=== PATIENT | male | born 1965 | race Caucasian/White ===

== ENCOUNTER 2022-06-08 10:06 | Inpatient (IN) ==
--- NOTE | 2022-06-08 10:17 | Emergency Department Note ---
HPI General Chief complaint: Wound/Laceration Stated complaint: blister on foot Time Seen by Provider: 06/08/22 10:17 Source: patient Mode of arrival: ambulatory Limitations: no limitations History of Present Illness HPI Narrative: Narrative: Patient is a 56-year-old male with a history significant for type 2 diabetes and diabetic foot wounds who presents to the emergency department at the request of Dr. Malik due to worsened foot wound. Patient states that he was seen on the at which time there was concern for a foot wound with surrounding cellulitis. Patient was given a prescription for antibiotics which she states that he has been taking since the time that they were prescribed. He saw Dr. Mendes this morning, and states that he has had worsening and spreading of the redness on his foot since his visit on the . He states that Dr. Malik saw him and became concerned, debrided his foot, and sent him to the emergency department. He denies any other concerns at this time. Related Data Home Medications Medication Instructions Recorded Confirmed aspirin 81 mg tablet,delayed 81 mg PO QDAY 02/20/15 06/08/22 release glucagon HCl 1 mg solution for 1 mg subcut Q20M PRN blood sugar 01/02/20 06/08/22 injection (Glucagon (HCl) Emergency Kit) travoprost 0.004 % eye drops 1 drp ophthalmic (eye) QPM 01/02/20 06/08/22 (Travatan Z) cholecalciferol (vitamin D3) 125 5,000 unit PO QDAY 05/26/21 06/08/22 mcg (5,000 unit) capsule Previous Rx's Medication Instructions Recorded lactobacillus combination no.9 4 4,000 mmu cells PO QDAY #30 caps 05/23/18 billion cell capsule (Adult 50 Plus Probiotic) carvedilol 3.125 mg tablet 3.125 mg PO BID #180 tabs 06/16/21 amlodipine 10 mg tablet 10 mg PO HS #90 tabs 10/27/21 calcitriol 0.25 mcg capsule 0.25 mcg PO 3XW #108 caps 10/27/21 ferrous fumarate 325 mg (106 mg 325 mg PO QDAY #30 tabs 10/27/21 iron) tablet insulin glargine 100 unit/mL See Rx Instructions subcut BID #90 10/27/21 subcutaneous solution mL insulin lispro 100 unit/mL See Rx Instructions .Route 10/27/21 subcutaneous pen .COMPLEX #15 mL omeprazole 20 mg capsule,delayed 20 mg PO HS #90 caps 11/11/21 release blood sugar diagnostic #100 ea 02/08/22 Telfa #1 Box 02/15/22 tamsulosin 0.4 mg capsule 0.4 mg PO HS #90 caps 02/23/22 folic acid 1 mg tablet 1 mg PO QDAY #90 tabs 02/28/22 furosemide 40 mg tablet 80 mg PO QDAY #180 tabs 02/28/22 allopurinol 100 mg tablet 100 mg PO QDAY #90 tabs 03/22/22 losartan 50 mg tablet 50 mg PO HS #90 tabs 03/22/22 atorvastatin 40 mg tablet 40 mg PO QHS #90 tabs 03/28/22 gabapentin 400 mg capsule See Rx Instructions .Route 04/01/22 .COMPLEX #270 caps baclofen 10 mg tablet See Rx Instructions .Route 04/27/22 .COMPLEX #60 tabs pen needle, diabetic 31 gauge x #100 ea 04/27/2211/29" (BD Ultra-Fine Short Pen Needle) blood-glucose sensor (Dexcom G6 #3 ea 05/02/22 Sensor device) blood-glucose transmitter (Dexcom #1 ea 05/02/22 G6 Transmitter device) clonazepam 1 mg tablet 1 mg PO BID PRN anxiety #60 tabs 05/27/22 hydrocodone 10 mg-acetaminophen 1 tab PO .five times a day PRN 05/27/22 325 mg tablet pain #150 tabs fluoxetine 20 mg capsule 80 mg PO QDAY 90 days #120 caps 05/30/22 Lactobacillus rhamnosus GG 20 1 cell PO QHS 60 days #60 caps 06/03/22 billion cell capsule (Probiotic Digestive Care) Allergies Allergy/AdvReac Type Severity Reaction Status Date / Time bee venom protein (honey bee) Allergy Severe nausea,swel Verified 06/08/22 10:11 ling doxazosin AdvReac Unknown abdominal Verified 06/08/22 10:11 pain sitagliptin [From Januvia] AdvReac unknown Verified 06/08/22 10:11 Review of Systems ROS ROS Narrative: Narrative: Constitutional: Denies fever or weakness Eyes: Denies eye pain or vision change ENT ED: Denies throat pain, hearing loss or rhinorrhea Cardiovascular: Denies chest pain, dyspnea on exertion, orthopnea or edema Respiratory: Denies shortness of breath or cough Gastrointestinal: Denies abdominal pain, nausea, vomiting, diarrhea, constipation, hematochezia or melena Genitourinary: Denies dysuria, frequency, hematuria or incontinence Musculoskeletal: Denies back pain or myalgia Integumentary: Reports lesions and change in color; Denies rash Neurological: Denies headache, weakness, numbness, confusion, abnormal gait or dizziness Endocrine: Denies fatigue or polyuria Hematological/Lymphatic: Denies easy bleeding or easy bruising [facility] Narrative Patient History Narrative: Narrative: Medical/Surgical/Family History All Active Problems (Updated 06/10/22 @ 06:35 by Amarjit Cheney MD) Cellulitis (Acute) Stage 2 acute kidney injury (Acute) Diabetic foot ulcer associated with type 2 diabetes mellitus, with fat layer exposed (Acute) Foot ulcer (Acute) Cellulitis and abscess of foot (Acute) Cellulitis of left foot (Acute) Advanced directives, counseling/discussion (Acute) Decreased hearing (Acute) Fatigue (Acute) Medicare annual wellness visit, initial (Acute) Diabetic neuropathy (Acute) Comprehensive diabetic foot examination, type 2 DM, encounter for (Acute) Wound of foot (Acute) Right foot pain (Acute) Anemia in stage 4 chronic kidney disease (Chronic) Diabetic foot ulcer (Acute) Chronic iron deficiency anemia (Acute) Secondary hyperparathyroidism of renal origin (Chronic) Localized edema due to fluid overload (Chronic) Ureteropelvic junction (UPJ) obstruction (Acute) Renal stone (Acute) Renal cyst (Acute) Chronic low back pain (Acute) Colitis without complication (Acute) Gastritis (Acute) Toe anomaly (Acute) Hypertension in stage 4 chronic kidney disease due to type 2 diabetes mellitus (Chronic) Screening PSA (prostate specific antigen) (Acute) Insomnia (Acute) Primary open-angle glaucoma, bilateral, mild stage (Acute) group home (current) use of aspirin (Acute) group home (current) use of opiate analgesic (Acute) PTSD (post-traumatic stress disorder) (Acute) Panic attack (Acute) Claustrophobia (Acute) DDD (degenerative disc disease), lumbar (Acute) Radiculopathy, lumbar region (Acute) Primary generalized (osteo)arthritis (Acute) Pure hypercholesterolemia, unspecified (Acute) Type 2 diabetes mellitus with moderate nonproliferative diabetic retinopathy without macular edema, unspecified eye (Acute) Type 2 diabetes mellitus with diabetic nephropathy (Acute) Morbid (severe) obesity due to excess calories (Acute) Chronic kidney disease (CKD) stage G4/A3, severely decreased glomerular filtration rate (GFR) between 15-29 mL/min/1.73 square meter and albuminuria creatinine ratio greater than 300 mg/g (Chronic) Chronic pain (Acute) Retinopathy due to secondary diabetes (Acute) Normal colonoscopy (Acute) Disorder of hip region (Chronic ~1964) Club foot of both lower extremities (Chronic ~1964) Pancreatitis (Chronic) Migraines (Chronic) Depression (Chronic) Anxiety (Chronic) Thrombocytopenia (Chronic) Gastroenteritis (Acute) Gastritis (Acute) Abnormal laboratory test result (Acute) Hypoglycemia (Acute) Edema extremities (Chronic) Type 2 DM with CKD stage 4 and hypertension (Chronic) Hypertensive renal disease (Chronic) Obesity (Chronic) 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 (Chronic) 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 (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) Vitamin D deficiency (Chronic) Hyperlipidemia (Chronic) HTN (hypertension) (Chronic) Diabetes mellitus, type II (Chronic ~1993) Diabetes mellitus with renal manifestation (Chronic) Medical History Anxiety 10/20/2020 taking clonazepam 1 mg each day, fluoxetine 60 mg daily, gabapentin, follow-up 3 months 01/20/2021 deteriorated, consult behavioral health 05/21/2021 deteriorated, increase fluoxetine to 80, increase clonazepam to twice daily, follow-up 1 month 10/07/2021 improved, continue fluoxetine 80 and clonazepam twice a day 03/23/2022 refer to [facility] Chronic pain Disabled due to pain in feet back and hips in 199301/03/2020 pain contract signed, Narcan given, risks versus benefit discussed 09/08/[address]GE pulled, urine drug screen, pain contract signed, discussed risks 10/07/2021 stable on hydrocodone Claustrophobia Club foot of both lower extremities (~1965) Comprehensive diabetic foot examination, type 2 DM, encounter for DDD (degenerative disc disease), lumbar Depression 02/21/2020 taking clonazepam 1 mg each day, fluoxetine 60 mg daily, gabapentin 10/20/2020 stable on clonazepam, fluoxetine and gabapentin 01/20/2021 deteriorated, consult behavioral health 05/21/2021 deteriorated, increase fluoxetine to 80, increase clonazepam to twice daily, follow-up 1 month 10/07/2021 improved, continue fluoxetine 80 and clonazepam twice a day 03/23/2022 refer to [facility] Diabetes mellitus with renal manifestation Followed by nephrology, glipizide on hold Diabetes mellitus, type II (~1993) 02/21/2020 A1c 6.4 down from 6.6, less low blood sugar symptoms and results, encouraged him to continue current regimen Lantus 40 twice daily, Humalog 12 units with lunch and dinner. Check blood sugar fasting, 2 hours after breakfast, before lunch, before dinner, at bedtime. 10/07/21 foot exam =05/2021. A1C 7.1 continue current medication regimen and checking blood sugars, labs today 02/15/2022 recent A1c 7.9, discussed strategies to improve, continue medication, check labs in 3 months 04/27/2022 labs today and follow-up in a month to discuss Diabetic neuropathy Disorder of hip region (~1964) Edema extremities Probably a combination of chronic kidney disease, proteinuria, amlodipine HTN (hypertension) 03/23/2022 followed by nephrology, elevated, encouraged him to monitor blood pressure at home Hyperlipidemia 02/19/2021 stable, but triglycerides deteriorated, continue atorvastatin 40, discussed ways to improve HDL, follow-up 3 months 02/15/2022 triglycerides elevated, continue atorvastatin 40, recheck in 3 months and then follow-up with me Hypertensive renal disease Insomnia group home (current) use of aspirin group home (current) use of opiate analgesic 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 Medicare annual wellness visit, initial Migraines Obesity Pancreatitis Secondary to Januvia Panic attack Primary generalized (osteo)arthritis Primary open-angle glaucoma, bilateral, mild stage Proteinuria PTSD (post-traumatic stress disorder) 02/21/2020 taking clonazepam 1 mg each day, fluoxetine 60 mg daily, gabapentin 10/20/2020 stable on clonazepam, fluoxetine and gabapentin 01/20/2021 deteriorated, consult behavioral health 05/21/2021 patient and admit they have been playing phone tag with [employer] [facility], increase fluoxetine to 80, increase clonazepam to twice daily, follow-up 1 month Pure hypercholesterolemia, unspecified Radiculopathy, lumbar region Retinopathy due to secondary diabetes Followed [facility] Screening PSA (prostate specific antigen) Thrombocytopenia [facility] evaluated and cleared the patient. Type 2 diabetes mellitus with diabetic nephropathy Followed by nephrology Type 2 diabetes mellitus with moderate nonproliferative diabetic retinopathy without macular edema, unspecified eye Followed by ophthalmology Vitamin D deficiency 07/21/2020 lower than before, continue taking vitamin D3 5000 daily Surgical History History of colonoscopy (03/12/20) History of esophagogastroduodenoscopy (EGD) (03/12/20) History of foot surgery Surgeries to correct double club feet. 1965, 1965 Normal colonoscopy Normal, repeat in 10 years, [facility] gastroenterology S/P foot surgery, left club foot surgery as an S/P foot surgery, right club foot surgery as an Family History Mother Cerebrovascular accident Osteoporosis Migraine Asthma Arthritis High blood pressure Congestive heart failure Depression Anxiety Diabetes COPD (chronic obstructive pulmonary disease) Father , 85 Alzheimer's disease Dementia Grandfather Diabetes Maternal Son Depression Social History Smoking Status: Former smoker Alcohol Intake Frequency: does not drink Substance Use: marijuana Exam Narrative Narrative: Narrative: General Limitations: no limitations General appearance: Present alert and in no apparent distress; Absent anxious, appears intoxicated or sleepy Head Head: Present atraumatic and normocephalic Eye Eye: Present PERRL and EOMI; Absent scleral icterus or nystagmus ENT ENT: Present mucous membranes moist; Absent nasal congestion Neck Neck: Present full ROM; Absent tenderness Chest Chest: Present normal inspection and symmetric chest wall rise Respiratory Respiratory: Present normal lung sounds bilaterally; Absent respiratory distress or accessory muscle use Cardiovascular Cardiovascular: Present regular rate, normal rhythm and normal heart sounds Adbominal Abdominal: Present soft and normal bowel sounds; Absent distention Extremities Extremities: Present normal inspection and full ROM; Absent tenderness Back Back: Present normal inspection and full ROM Neurological Neurological: Present alert and oriented X3 Psychiatric Psychiatric: Present normal affect and normal mood Skin Skin: Present warm (WNL), dry, normal color, erythema and other (Ulcer) Course Vital Signs Vital signs: Vital Signs Temperature 96.6 F L 06/08/22 10:09 Pulse Rate 87 06/08/22 10:09 Respiratory Rate 18 06/08/22 10:09 Blood Pressure 151/78 06/08/22 10:09 Pulse Oximetry (%) 96 06/08/22 10:09 Oxygen Delivery Method 06/08/22 10:09 Temperature 97.0 F 06/10/22 03:38 Pulse Rate 63 06/10/22 03:38 Respiratory Rate 20 06/10/22 03:38 Blood Pressure 159/76 06/10/22 03:38 Pulse Oximetry (%) 99 06/10/22 03:38 Oxygen Delivery Method 06/10/22 03:38 MDM MDM Narrative Medical decision making narrative: Narrative: Patient is a 56-year-old male who presents to the emergency department due to concern for failure of outpatient therapy for cellulitis. Patient does have spread of cellulitic looking erythema of the skin. Due to concern for worsening cellulitis and failure of outpatient therapy-patient antibiotics have spoken to hospitalist who has agreed to see and evaluate patient for admission. Lab Data Result diagrams: 06/09/22 04:59 06/10/22 05:34 Labs: Lab Results 06/08/22 06/08/22 06/08/22 Range/Units 10:36 10:39 10:39 WBC 9.5 (4.5-11.0) K/mcL RBC 4.07 L (4.63-6.08) M/mcL Hgb 11.5 L (13.7-17.5) g/dL Hct 34.6 L (40.1-51.0) % POC Hct 35.0 L (41-55) MCV 85.0 (80.0-100.0) fL MCH 28.3 (26.0-34.0) pg MCHC 33.2 (31.0-36.0) g/dL RDW 13.3 (11.5-14.5) % Plt Count 135 L (140-440) K/mcL MPV 8.2 L (8.8-12.5) fL Immature Gran % (Auto) 0.9 H (0.0-0.5) % Neut % (Auto) 75.5 (38.0-78.0) % Lymph % (Auto) 14.4 L (15.5-49.0) % [place] % (Auto) 5.6 (1.0-12.0) % Eos % (Auto) 3.0 (0.0-7.0) % Baso % (Auto) 0.6 (0.0-2.0) % Lymph # (Auto) 1.37 L (1.50-4.80) K/mcL [place] # (Auto) 0.53 (0.10-0.90) K/mcL Eos # (Auto) 0.28 (0.00-0.70) K/mcL Baso # (Auto) 0.06 (0.00-0.30) K/mcL Immature Gran # 0.09 H (0.00-0.05) K/mcl Absolute Neutrophils 7.16 (1.80-8.00) K/mcL POC Sodium 136 (133-145) POC Potassium 4.2 (3.3-5.1) POC Chloride 99 (96-108) POC Total CO2 25.0 (22-30) POC BUN 67 H (6-20) POC Creatinine 3.4 H (0.6-1.2) POC Glucose 297 H (70-105) POC WB Ioniz Calcium 1.16 (1.16-1.32) C-Reactive Protein 5.40 H (0.03-0.80) mg/dL Procalcitonin (<0.10) ng/mL 06/08/22 Range/Units 10:39 WBC (4.5-11.0) K/mcL RBC (4.63-6.08) M/mcL Hgb (13.7-17.5) g/dL Hct (40.1-51.0) % POC Hct (41-55) MCV (80.0-100.0) fL MCH (26.0-34.0) pg MCHC (31.0-36.0) g/dL RDW (11.5-14.5) % Plt Count (140-440) K/mcL MPV (8.8-12.5) fL Immature Gran % (Auto) (0.0-0.5) % Neut % (Auto) (38.0-78.0) % Lymph % (Auto) (15.5-49.0) % [place] % (Auto) (1.0-12.0) % Eos % (Auto) (0.0-7.0) % Baso % (Auto) (0.0-2.0) % Lymph # (Auto) (1.50-4.80) K/mcL [place] # (Auto) (0.10-0.90) K/mcL Eos # (Auto) (0.00-0.70) K/mcL Baso # (Auto) (0.00-0.30) K/mcL Immature Gran # (0.00-0.05) K/mcl Absolute Neutrophils (1.80-8.00) K/mcL POC Sodium (133-145) POC Potassium (3.3-5.1) POC Chloride (96-108) POC Total CO2 (22-30) POC BUN (6-20) POC Creatinine (0.6-1.2) POC Glucose (70-105) POC WB Ioniz Calcium (1.16-1.32) C-Reactive Protein (0.03-0.80) mg/dL Procalcitonin 0.34 H (<0.10) ng/mL Discharge Plan Patient/Caregiver Discharge Instructions Pt seen by [facility]/PA only: No Clinical Impression: Cellulitis Patient Disposition: Xfer As Inpt ([facility]) Condition: Good Discharge Date/Time: 06/08/22 14:14
[2022-06-08] MEDS ORDERED: CEFEPIME 2 GM VIAL IV ONE (10:18)
[2022-06-08] MEDS ORDERED: VANCOMYCIN 2,000 MG in 0.9 % SODIUM CHLORIDE 500 ML IV ONE (10:18)
[2022-06-08 10:42] LABS: POC Calcium, Ionized 1.16 (1.16-1.32); POC Creatinine 3.4 (0.6-1.2); POC Potassium 4.2 (3.3-5.1)
[2022-06-08] MEDS ORDERED: 0.9 % SODIUM CHLORIDE 500 ML IV ONE (10:45)
[2022-06-08] MEDS ORDERED: 0.9 % SODIUM CHLORIDE 500 ML ONE (11:07)
[2022-06-08 11:33] LABS: Basophils # (Auto) 0.06 K/mcL (0.00-0.30); Basophils % (Auto) 0.6 % (0.0-2.0); Eosinophils # (Auto) 0.28 K/mcL (0.00-0.70); Hematocrit 34.6 % (40.1-51.0); Hemoglobin 11.5 g/dL (13.7-17.5); Lymphocytes # (Auto) 1.37 K/mcL (1.50-4.80); Lymphocytes % (Auto) 14.4 % (15.5-49.0); Mean Corpuscular HGB Conc 33.2 g/dL (31.0-36.0); Mean Platelet Volume 8.2 fL (8.8-12.5); Monocytes # (Auto) 0.53 K/mcL (0.10-0.90); Monocytes % (Auto) 5.6 % (1.0-12.0); Neutrophils % (Auto) 75.5 % (38.0-78.0); Platelet Count 135 K/mcL (140-440); RBC 4.07 M/mcL (4.63-6.08); Red Cell Distribution Width 13.3 % (11.5-14.5); WBC 9.5 K/mcL (4.5-11.0)
--- NOTE | 2022-06-08 13:47 | Internal Med History&Physical ---
HPI History of Present Illness Patient information: Note initiated : 06/08/22 at 1:43 pm Service Date, if different from initiated Date: [] Patient: Tanvir Fontana Jr 56 y/o M admitted on for blister on foot. Chief Complaint: [left foot ulcer] Chief complaint: left foot ulcer History of present illness: Mr. Addi Singh is a 56 year old M history of type 2 diabetes mellitus, diabetic foot ulcer of the left heel, chronic kidney disease stage IV, essential hypertensions, dyslipidemia, obesity, presenting with 5-day history of nonhealing left foot ulcer. He had a history of acute left healed ulcer. Last Monday he presented to our ED for a new ulcer between the base of his first and second left toe. He was being discharged home with oral antibiotics Augmentin and doxycycline for it. He finished 5-day course of dosed oral antibiotics and he presented to Dr. Malik [facility] today for further evaluations. The ulceration/infection was deemed to be not healing despite 5-day course of oral antibiotics, so he was being told to come to the ED for reevaluations. Patient's denies any pain of his left foot. He is complaining of some general body weakness. He denies any other systemic symptoms such as change in his appetite, fever, chills, or diaphoresis. His vital sign is unremarkable. Labs significant for lack of leukocytosis with WBC 9.5. CRP 5.4. Procalcitonin 0.34. ESR pending. Lactic acid pending. Blood glucose level 297. Serum creatinine level 3.4 with baseline 2.6. Admission request was called for diabetic foot infections. Constitutional Constitutional: Present weakness; Absent chills, excessive sweating, fatigue or fever(s) EENT Eyes: Absent blurry vision, change in vision, loss of vision or other visual disturbances Ears: Absent decreased hearing or tinnitus Nose, mouth and throat: Absent abnormal hearing, dry mouth, headache(s), nasal congestion or sore throat Cardiovascular Cardiovascular: Absent chest pain, chest pain at rest, edema, irregular heart rhythm or palpatations Respiratory Respiratory: Absent cough, dyspnea or wheezing Gastrointestinal Gastrointestinal: Absent abdominal pain, constipation, diarrhea, nausea or vomiting Musculoskeletal Musculoskeletal: Absent back pain, deformity, limited range of motion, muscle cramps, muscle weakness or numbness Integumentary Integumentary: Absent lesions, rash or wounds Neurological Neurological: Absent focal weakness, headache(s) or numbness Psychiatric Psychiatric: Absent anxiety, depression or hallucinations PFSH PFSH All Active Problems (Updated 06/08/22 @ 13:55 by Zion Henry MD) Stage 2 acute kidney injury (Acute) Diabetic foot ulcer associated with type 2 diabetes mellitus, with fat layer exposed (Acute) Foot ulcer (Acute) Cellulitis and abscess of foot (Acute) Cellulitis of left foot (Acute) Advanced directives, counseling/discussion (Acute) Decreased hearing (Acute) Fatigue (Acute) Medicare annual wellness visit, initial (Acute) Diabetic neuropathy (Acute) Comprehensive diabetic foot examination, type 2 DM, encounter for (Acute) Wound of foot (Acute) Right foot pain (Acute) Anemia in stage 4 chronic kidney disease (Chronic) Diabetic foot ulcer (Acute) Chronic iron deficiency anemia (Acute) Secondary hyperparathyroidism of renal origin (Chronic) Localized edema due to fluid overload (Chronic) Ureteropelvic junction (UPJ) obstruction (Acute) Renal stone (Acute) Renal cyst (Acute) Chronic low back pain (Acute) Colitis without complication (Acute) Gastritis (Acute) Toe anomaly (Acute) Hypertension in stage 4 chronic kidney disease due to type 2 diabetes mellitus (Chronic) Screening PSA (prostate specific antigen) (Acute) Insomnia (Acute) Primary open-angle glaucoma, bilateral, mild stage (Acute) FPC (current) use of 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 (Acute) 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 (Acute) PTSD (post-traumatic stress disorder) (Acute) Panic attack (Acute) Claustrophobia (Acute) DDD (degenerative disc disease), lumbar (Acute) Radiculopathy, lumbar region (Acute) Primary generalized (osteo)arthritis (Acute) Pure hypercholesterolemia, unspecified (Acute) Type 2 diabetes mellitus with moderate nonproliferative diabetic retinopathy without macular edema, unspecified eye (Acute) Type 2 diabetes mellitus with diabetic nephropathy (Acute) Morbid (severe) obesity due to excess calories (Acute) Chronic kidney disease (CKD) stage G4/A3, severely decreased glomerular filtration rate (GFR) between 15-29 mL/min/1.73 square meter and albuminuria creatinine ratio greater than 300 mg/g (Chronic) Chronic pain (Acute) Retinopathy due to secondary diabetes (Acute) Normal colonoscopy (Acute) Disorder of hip region (Chronic ~1964) Club foot of both lower extremities (Chronic ~1964) Pancreatitis (Chronic) Migraines (Chronic) Depression (Chronic) Anxiety (Chronic) Thrombocytopenia (Chronic) Gastroenteritis (Acute) Gastritis (Acute) Abnormal laboratory test result (Acute) Hypoglycemia (Acute) Edema extremities (Chronic) Type 2 DM with CKD stage 4 and hypertension (Chronic) Hypertensive renal disease (Chronic) Obesity (Chronic) Proteinuria (Chronic) FPC current use of insulin (Chronic) Vitamin D deficiency (Chronic) Hyperlipidemia (Chronic) HTN (hypertension) (Chronic) Diabetes mellitus, type II (Chronic ~1993) Diabetes mellitus with renal manifestation (Chronic) Medical History Anxiety 10/20/2020 taking clonazepam 1 mg each day, fluoxetine 60 mg daily, gabapentin, follow-up 3 months 01/20/2021 deteriorated, consult behavioral health 05/21/2021 deteriorated, increase fluoxetine to 80, increase clonazepam to twice daily, follow-up 1 month 10/07/2021 improved, continue fluoxetine 80 and clonazepam twice a day 03/23/2022 refer to [facility] Chronic pain Disabled due to pain in feet back and hips in 199301/03/2020 pain contract signed, Narcan given, risks versus benefit discussed 09/08/2020 [employer] pulled, urine drug screen, pain contract signed, discussed risks 10/07/2021 stable on hydrocodone Claustrophobia Club foot of both lower extremities (~1964) Comprehensive diabetic foot examination, type 2 DM, encounter for DDD (degenerative disc disease), lumbar Depression 02/21/2020 taking clonazepam 1 mg each day, fluoxetine 60 mg daily, gabapentin 10/20/2020 stable on clonazepam, fluoxetine and gabapentin 01/20/2021 deteriorated, consult behavioral health 05/21/2021 deteriorated, increase fluoxetine to 80, increase clonazepam to twice daily, follow-up 1 month 10/07/2021 improved, continue fluoxetine 80 and clonazepam twice a day 03/23/2022 refer to [facility] Diabetes mellitus with renal manifestation Followed by nephrology, glipizide on hold Diabetes mellitus, type II (~1993) 02/21/2020 A1c 6.4 down from 6.6, less low blood sugar symptoms and results, encouraged him to continue current regimen Lantus 40 twice daily, Humalog 12 units with lunch and dinner. Check blood sugar fasting, 2 hours after breakfast, before lunch, before dinner, at bedtime. 10/07/21 foot exam =05/2021. A1C 7.1 continue current medication regimen and checking blood sugars, labs today 02/15/2022 recent A1c 7.9, discussed strategies to improve, continue medication, check labs in 3 months 04/27/2022 labs today and follow-up in a month to discuss Diabetic neuropathy Disorder of hip region (~1965) Edema extremities Probably a combination of chronic kidney disease, proteinuria, amlodipine HTN (hypertension) 03/23/2022 followed by nephrology, elevated, encouraged him to monitor blood pressure at home Hyperlipidemia 02/19/2021 stable, but triglycerides deteriorated, continue atorvastatin 40, discussed ways to improve HDL, follow-up 3 months 02/15/2022 triglycerides elevated, continue atorvastatin 40, recheck in 3 months and then follow-up with tx Hypertensive renal disease Insomnia FPC (current) use of aspirin FPC (current) use of opiate analgesic FPC current use of insulin Medicare annual wellness visit, initial Migraines Obesity Pancreatitis Secondary to Januvia Panic attack Primary generalized (osteo)arthritis Primary open-angle glaucoma, bilateral, mild stage Proteinuria PTSD (post-traumatic stress disorder) 02/21/2020 taking clonazepam 1 mg each day, fluoxetine 60 mg daily, gabapentin 10/20/2020 stable on clonazepam, fluoxetine and gabapentin 01/20/2021 deteriorated, consult behavioral health 05/21/2021 patient and admit they have been playing phone tag with [employer] [facility], increase fluoxetine to 80, increase clonazepam to twice daily, follow-up 1 month Pure hypercholesterolemia, unspecified Radiculopathy, lumbar region Retinopathy due to secondary diabetes Followed [facility] [place] Screening PSA (prostate specific antigen) Thrombocytopenia [facility] evaluated and cleared the patient. Type 2 diabetes mellitus with diabetic nephropathy Followed by nephrology Type 2 diabetes mellitus with moderate nonproliferative diabetic retinopathy without macular edema, unspecified eye Followed by ophthalmology Vitamin D deficiency 07/21/2020 lower than before, continue taking vitamin D3 5000 daily Surgical History History of colonoscopy (03/12/20) History of esophagogastroduodenoscopy (EGD) (03/12/20) History of foot surgery Surgeries to correct double club feet. 1964, 1965 Normal colonoscopy Normal, repeat in 10 years, [facility] gastro[facility] S/P foot surgery, left club foot surgery as an infant S/P foot surgery, right club foot surgery as an infant Family History Mother Cerebrovascular accident Osteoporosis Migraine Asthma Arthritis High blood pressure Congestive heart failure Depression Anxiety Diabetes COPD (chronic obstructive pulmonary disease) Father , 85 Alzheimer's disease Dementia Grandfather Diabetes Maternal Son Depression Social History marital status: smoking status: Former smoker quit date: 01/20/03 smoking status stop date: 05/17/03 alcohol intake frequency: does not drink substance use type: marijuana additional history: Patient is a former cigarette smoker for 20+ years, quit in 2002; & former chewing tobacco for 15 years, quit in 2016. MEDS/ALLERGIES Home Medications and Allergies Home Medications Medication Instructions Recorded Confirmed Type aspirin 81 mg tablet,delayed 81 mg PO QDAY 02/20/15 06/01/22 History release lactobacillus combination no.9 4 4,000 mmu cells PO QDAY #30 caps 05/23/18 06/01/22 Rx billion cell capsule (Adult 50 Plus Probiotic) glucagon HCl 1 mg solution for 1 mg subcut Q20M PRN blood sugar 01/02/20 06/01/22 History injection (Glucagon (HCl) Emergency Kit) travoprost 0.004 % eye drops 1 drp ophthalmic (eye) QPM 01/02/20 06/01/22 History (Travatan Z) cholecalciferol (vitamin D3) 125 5,000 unit PO QDAY 05/26/21 06/01/22 History mcg (5,000 unit) capsule carvedilol 3.125 mg tablet 3.125 mg PO BID #180 tabs 06/16/21 06/01/22 Rx amlodipine 10 mg tablet 10 mg PO HS #90 tabs 10/27/21 06/01/22 Rx calcitriol 0.25 mcg capsule 0.25 mcg PO 3XW #108 caps 10/27/21 06/01/22 Rx ferrous fumarate 325 mg (106 mg 325 mg PO QDAY #30 tabs 10/27/21 06/01/22 Rx iron) tablet insulin glargine 100 unit/mL See Rx Instructions subcut BID #90 10/27/21 06/01/22 Rx subcutaneous solution mL insulin lispro 100 unit/mL See Rx Instructions .Route 10/27/21 06/01/22 Rx subcutaneous pen .COMPLEX #15 mL omeprazole 20 mg capsule,delayed 20 mg PO HS #90 caps 11/11/21 06/01/22 Rx release blood sugar diagnostic #100 ea 02/08/22 06/01/22 Rx Telfa #1 Box 02/15/22 06/01/22 Rx tamsulosin 0.4 mg capsule 0.4 mg PO HS #90 caps 02/23/22 06/01/22 Rx folic acid 1 mg tablet 1 mg PO QDAY #90 tabs 02/28/22 06/01/22 Rx furosemide 40 mg tablet 80 mg PO QDAY #180 tabs 02/28/22 06/01/22 Rx allopurinol 100 mg tablet 100 mg PO QDAY #90 tabs 03/22/22 06/01/22 Rx losartan 50 mg tablet 50 mg PO HS #90 tabs 03/22/22 06/01/22 Rx atorvastatin 40 mg tablet 40 mg PO QHS #90 tabs 03/28/22 06/01/22 Rx gabapentin 400 mg capsule See Rx Instructions .Route 04/01/22 06/01/22 Rx .COMPLEX #270 caps baclofen 10 mg tablet See Rx Instructions .Route 04/27/22 06/01/22 Rx .COMPLEX #60 tabs pen needle, diabetic 31 gauge x #100 ea 04/27/22 06/01/22 Rx 5/16" (BD Ultra-Fine Short Pen Needle) blood-glucose sensor (Dexcom G6 #3 ea 05/02/22 06/01/22 Rx Sensor device) blood-glucose transmitter (Dexcom #1 ea 05/02/22 06/01/22 Rx G6 Transmitter device) clonazepam 1 mg tablet 1 mg PO BID PRN anxiety #60 tabs 05/27/22 06/01/22 Rx hydrocodone 10 mg-acetaminophen 1 tab PO .five times a day PRN 05/27/22 06/01/22 Rx 325 mg tablet pain #150 tabs fluoxetine 20 mg capsule 80 mg PO QDAY 90 days #120 caps 05/30/22 06/01/22 Rx Lactobacillus rhamnosus GG 20 1 cell PO QHS 60 days #60 caps 06/03/22 Rx billion cell capsule (Probiotic Digestive Care) amoxicillin 500 mg-potassium 1 tab PO BID foot ulcer with 06/03/22 Rx clavulanate 125 mg tablet cellulitis #20 tabs (Augmentin) doxycycline hyclate 100 mg capsule 100 mg PO BID foot ulcer with 06/03/22 Rx cellulitis #20 caps Allergies Allergy/AdvReac Type Severity Reaction Status Date / Time bee venom protein (honey bee) Allergy Severe nausea,swel Verified 06/08/22 10:11 ling doxazosin AdvReac Unknown abdominal Verified 06/08/22 10:11 pain sitagliptin [From ] AdvReac unknown Verified 06/08/22 10:11 EXAM Constitutional Vitals: Temp Pulse Resp BP Pulse Ox O2 Del Method 35.9 C L 56 L 18 125/63 96 06/08/22 10:09 06/08/22 12:42 06/08/22 10:09 06/08/22 11:52 06/08/22 12:42 06/08/22 10:09 General appearance: cooperative, no acute distress and obese Head Head exam: Present atraumatic and normocephalic Eye Eye exam: Present EOMI and PERRL ENT ENT exam: Present mucous membranes moist, normal exam and normal external ear exam Neck Neck exam: Present normal inspection; Absent lymphadenopathy, tenderness or thyromegaly Respiratory Respiratory exam: Absent accessory muscle use, respiratory distress or wheezes Cardiovascular Cardiovascular exam: Present normal rate and rhythm; Absent JVD GI/Abdominal GI/Abdominal exam: Present normal bowel sounds and soft; Absent organomegaly or tenderness Rectal Rectal exam: Present deferred Extremities Exam Extremities exam: Present full ROM and normal capillary refill; Absent normal inspection or tenderness Additional comments: 1 inch stage 3 ulcer of the left foot plantar aspect between the base of 1st and 2nd toes, with clear discharge, no foul smelling, and surrounding erythema spreading to the entire half of the anterior foot. Neurological Exam Neurological exam: Present alert, CN II-XII intact and oriented X3; Absent motor sensory deficit Psychiatric Psychiatric exam: Present normal affect and normal mood; Absent anxious or depressed Skin Skin exam: Present dry and intact DATA Data Completed and Pending Labs: Labs from last 24 hours 06/08/22 06/08/22 06/08/22 10:39 10:39 10:39 WBC 9.5 RBC 4.07 L Hgb 11.5 L Hct 34.6 L POC Hct MCV 85.0 MCH 28.3 MCHC 33.2 RDW 13.3 Plt Count 135 L MPV 8.2 L Immature Gran % (Auto) 0.9 H Neut % (Auto) 75.5 Lymph % (Auto) 14.4 L Greer % (Auto) 5.6 Eos % (Auto) 3.0 Baso % (Auto) 0.6 Lymph # (Auto) 1.37 L Greer # (Auto) 0.53 Eos # (Auto) 0.28 Baso # (Auto) 0.06 Immature Gran # 0.09 H Absolute Neutrophils 7.16 POC Sodium POC Potassium POC Chloride POC Total CO2 POC BUN POC Creatinine POC Glucose POC WB Ioniz Calcium C-Reactive Protein 5.40 H Procalcitonin 0.34 H 06/08/22 10:36 WBC RBC Hgb Hct POC Hct 35.0 L MCV MCH MCHC RDW Plt Count MPV Immature Gran % (Auto) Neut % (Auto) Lymph % (Auto) Greer % (Auto) Eos % (Auto) Baso % (Auto) Lymph # (Auto) Greer # (Auto) Eos # (Auto) Baso # (Auto) Immature Gran # Absolute Neutrophils POC Sodium 136 POC Potassium 4.2 POC Chloride 99 POC Total CO2 25.0 POC BUN 67 H POC Creatinine 3.4 H POC Glucose 297 H POC WB Ioniz Calcium 1.16 C-Reactive Protein Procalcitonin A/P Assessment and plan (1) Hyperlipidemia: Status: Chronic Comment: 02/19/2021 stable, but triglycerides deteriorated, continue atorvastatin 40, discussed ways to improve HDL, follow-up 3 months 02/15/2022 triglycerides elevated, continue atorvastatin 40, recheck in 3 months and then follow-up with me 06/01/22 stable continue atorvastatin, labs in July and then follow-up with me (2) Diabetic foot ulcer associated with type 2 diabetes mellitus, with fat layer exposed: Status: Acute (3) Type 2 diabetes mellitus with diabetic nephropathy: Status: Acute Comment: Followed by nephrology (4) Morbid (severe) obesity due to excess calories: Status: Acute Comment: 03/23/2022 refer to pulmonology for sleep study (5) Type 2 DM with CKD stage 4 and hypertension: Status: Chronic Comment: Followed by nephrology (6) Anemia in stage 4 chronic kidney disease: Status: Chronic (7) Stage 2 acute kidney injury: Status: Acute Narrative A/P Narrative: Assessment and Plans: 1. Left diabetic foot with ulcer in the plantar aspect of the foot between bases of 1st and 2nd toes: Inpatient med surg Consult Dr. Smith for surgical management, recs. appreciated Wound care consult Start with XR to look for evidence of osteomyelitis. If needed, consider CT or MRI when renal functions improve SCDs Serial lactic acid Procalcitonin ESR and CRP cbc w/ auto diff in the morning to trend WBC MRSA screening Vancomcyin Cefepime Tylenol PRN fever/mild pain [place] PRN moderate pain Morphine IV PRN severe pain Physical therapy HgA1c Glargine 80 unit AM and 40 unit PM Lispro 6 unit At lunch or dinner time plus SSI AC HS Accu Check AC HS Hypoglycemia protocol Diabetic diet 2. Anemia in CKD4: cbc w/ auto diff in the morning to trend H/H 3. Stage 2 acute kidney injury with chronic kidney disease IV: Avoid nephrotoxic agents NS@100cc/hr CMP in the morning to trend kidney functions 4. Essential HTN: Amlodipine Coreg Holding Lasix in the context of acute kidney injury Holding Losartan in the context of acute kidney injury 5. Hyperlipidemia: Continue statin therapy 6. 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
[2022-06-08] MEDS ORDERED: DEXTROSE 31 GM ORAL.SUSP PO PRN (14:36)
[2022-06-08] MEDS ORDERED: IPRATROPIUM/ALBUTEROL 3 ML AMPUL.NEB NEB PRN (14:36)
[2022-06-08] MEDS ORDERED: DEXTROSE 50% 50 ML VIAL IV PRN (14:36)
[2022-06-08] MEDS ORDERED: traZODone HCL 50 MG TABLET PO PRN (14:36)
[2022-06-08] MEDS ORDERED: morphine 4 MG/ML VIAL IV PRN (14:36)
[2022-06-08] MEDS ORDERED: VANCOMYCIN PER PHARMACY IV SCH (14:36)
--- NOTE | 2022-06-08 15:32 | XRay Report ---
HISTORY: Diabetic with left foot infection FINDINGS: On the AP view several small bubbles of air are present in the soft tissues between the base of the first and second toes. On the lateral view these appear to be located on the plantar surface of the foot. The adjacent bones are normal without evidence of infection. There are small spurs on the plantar surface of the calcaneus and along the superior border of the talus and cuneiforms. There is lateral wedging with narrowing of the navicular. There is a chronic finding, unchanged from 01/26/22. IMPRESSION: soft tissue infection beneath the first and second metatarsal phalangeal joints. No evidence of osteomyelitis Interpreted and Authenticated by: Kunal Keen 06/08/22
[2022-06-08] MEDS: 0.9 % SODIUM CHLORIDE 10 ML SYRINGE IV SCH ×2 (16:03→22:04)
[2022-06-08 16:06] LABS: Estimated Average Glucose(eAG) 177 mg/dL; Hemoglobin A1C 7.8 % Hgb (4.0-6.0)
[2022-06-08] MEDS: 0.9 % SODIUM CHLORIDE 1,000 ML IV SCH (16:07)
[2022-06-08] MEDS ORDERED: clonazePAM 1 MG TABLET PO PRN (16:15)
[2022-06-08] MEDS: INSULIN LISPRO 1 UNIT/0.01 ML UNIT SQ SCH ×2 (16:16→20:29)
[2022-06-08] MEDS: CARVEDILOL 3.125 MG TABLET PO SCH (17:24)
[2022-06-08] MEDS: HYDROcodone/APAP 10/325MG TABLET PO PRN ×2 (17:27→22:16)
[2022-06-08] MEDS: ACETAMINOPHEN 325 MG TABLET PO PRN (20:30)
[2022-06-08] MEDS: amLODIPine 10 MG TABLET PO SCH (20:31)
[2022-06-08] MEDS: OMEPRAZOLE 20 MG CAPSULE PO SCH (20:31)
[2022-06-08] MEDS: ATORVASTATIN 40 MG TABLET PO SCH (20:31)
[2022-06-08] MEDS: SENNOSIDES 1 TABLET PO SCH (20:31)
[2022-06-08] MEDS: LACTOBACILLUS 1 CAPSULE PO SCH (20:31)
[2022-06-08] MEDS: TAMSULOSIN 0.4 MG CAPSULE PO SCH (20:31)
[2022-06-08] MEDS: BACLOFEN 10 MG TABLET PO SCH (20:31)
[2022-06-08] MEDS: DOCUSATE SODIUM 100 MG CAPSULE PO SCH (20:32)
[2022-06-08] MEDS: GABAPENTIN 400 MG CAPSULE PO SCH (20:32)
[2022-06-08] MEDS ORDERED: LACTOBACILLUS RHAMNOSUS GG PO SCH (21:00)
[2022-06-08] MEDS ORDERED: INSULIN GLARGINE, HUMAN 1 UNIT/0.01 ML SQ SCH ×2 (21:00)
[2022-06-08] MEDS: TRAVOPROST OPHTH DROPS BOTTLE 2.5ML OU SCH (22:03)
[2022-06-08] MEDS: CEFEPIME 1 GM VIAL IV SCH (22:03)
[2022-06-09] MEDS: 0.9 % SODIUM CHLORIDE 1,000 ML IV SCH ×4 (02:06→20:21)
[2022-06-09] MEDS: CEFEPIME 1 GM VIAL IV SCH ×3 (05:32→21:50)
[2022-06-09] MEDS: 0.9 % SODIUM CHLORIDE 10 ML SYRINGE IV SCH ×3 (05:32→21:50)
[2022-06-09 06:59] LABS: Basophils # (Auto) 0.06 K/mcL (0.00-0.30); Basophils % (Auto) 0.7 % (0.0-2.0); Eosinophils # (Auto) 0.36 K/mcL (0.00-0.70); Eosinophils % (Auto) 4.2 % (0.0-7.0); Hematocrit 35.2 % (40.1-51.0); Hemoglobin 11.4 g/dL (13.7-17.5); Lymphocytes # (Auto) 2.41 K/mcL (1.50-4.80); Mean Cell Volume 86.5 fL (80.0-100.0); Mean Corpuscular HGB Conc 32.4 g/dL (31.0-36.0); Monocytes # (Auto) 0.61 K/mcL (0.10-0.90); Monocytes % (Auto) 7.1 % (1.0-12.0); Platelet Count 116 K/mcL (140-440); RBC 4.07 M/mcL (4.63-6.08); Red Cell Distribution Width 13.4 % (11.5-14.5); WBC 8.6 K/mcL (4.5-11.0)
[2022-06-09] MEDS: INSULIN LISPRO 1 UNIT/0.01 ML UNIT SQ SCH ×4 (08:57→20:34)
[2022-06-09] MEDS: HYDROcodone/APAP 10/325MG TABLET PO PRN ×3 (09:43→21:55)
[2022-06-09] MEDS: ALLOPURINOL 100 MG TABLET PO SCH (09:44)
[2022-06-09] MEDS: GABAPENTIN 400 MG CAPSULE PO SCH ×2 (09:45→20:19)
[2022-06-09] MEDS: CARVEDILOL 3.125 MG TABLET PO SCH ×2 (09:45→18:43)
[2022-06-09] MEDS: ASPIRIN 81 MG TAB.CHEW PO SCH (09:46)
[2022-06-09] MEDS: FERROUS SULFATE 325 MG TABLET PO SCH (09:46)
[2022-06-09] MEDS: FOLIC ACID 1 MG TABLET PO SCH (09:46)
[2022-06-09] MEDS: VITAMIN D3 125 MCG TABLET PO SCH (09:46)
[2022-06-09] MEDS: BACLOFEN 10 MG TABLET PO SCH ×2 (09:46→20:20)
[2022-06-09] MEDS: DOCUSATE SODIUM 100 MG CAPSULE PO SCH ×2 (09:47→20:19)
[2022-06-09] MEDS: FLUoxetine HCL 20 MG CAPSULE PO SCH (09:48)
[2022-06-09] MEDS: LACTOBACILLUS 1 CAPSULE PO SCH ×2 (09:48→20:19)
[2022-06-09] MEDS: INSULIN GLARGINE, HUMAN 1 UNIT/0.01 ML SQ SCH (09:56)
[2022-06-09] MEDS ORDERED: VANCOMYCIN 500 MG in 0.9 % SODIUM CHLORIDE 100 ML IV ONE (11:00)
[2022-06-09] MEDS ORDERED: INSULIN LISPRO 1 UNIT/0.01 ML UNIT SQ SCH (11:30)
--- NOTE | 2022-06-09 13:51 | General Surgery Progress Note ---
SUBJECTIVE Subjective Patient information: Note initiated : 06/09/22 at 1:44 pm Service Date, if different from initiated Date: [] Patient: Tanvir Fontana Jr 56 y/o M admitted on 06/08/22 for blister on foot. Chief Complaint: [] Additional PMFSH (Level 3 Only): 06/09/2022. Patient seen with Alem VERDIN. DENIES any new complaints. Tolerating IV antibiotics and local wound care. Constitutional Vitals: Vital Signs Temp Pulse Resp BP Pulse Ox O2 Del Method 98.6 F 69 14 169/76 98 06/09/22 08:00 06/09/22 08:00 06/09/22 08:00 06/09/22 08:00 06/09/22 10:05 06/09/22 10:05 Period Temp Pulse Resp BP Sys/Saucedo Pulse Ox O2 Del Method O2 Flow Rate Last 24 Hr 97 F-98.6 F 50-69 14-16 131-190/60-84 94-99 Room Air-Room Air Intake and Output 06/09/22 06/09/22 06/09/22 03:59 11:59 19:59 Intake Total 2280 236 1236 Balance 2280 236 1236 Weight 282 lb 3.2 oz Intake & Output: Intake & Output 06/09/22 06/09/22 06/09/22 03:59 11:59 19:59 Intake Total 2280 236 1236 Balance 2280 236 1236 Weight 282 lb 3.2 oz Intake: IV 1000 1000 Sodium Chloride 0.9% 1,000 ml @ 1000 1000 100 mls/hr IV .Q10H [facility] Rx#: [id number] Oral 1280 236 236 Other: Meal Breakfast Lunch Percent of Meal Consumed 100% 75% # Voids 4 1 Exam: AVSS,NO [place] [facility]. Left foot dressings CDI. Did NOT examine wound today. Reviewed lab results and X Ray foot. (NO osteo) RIGHT forehead bruise / abrasion improved. Deep soft tissue cultures selective debridement) awaited. Discussed with patient about NEED for in hospital treatment. He understands and concurs. A/P Narrative A/P Narrative: Assessment: CSSSI LEFT forefoot Stage 4 Plantar DFU great toe. Plan of Treatment: Plan: Local wound care, IV antibiotics. Await deep tissue c/s from 06/08/2022 Time Spent With Patient Time: Total time spent is greater than 50% in coordination of care (as documented) at patient's floor/unit and/or counseling patient:
--- NOTE | 2022-06-09 14:13 | Internal Med Progress Note ---
SUBJECTIVE Subjective Patient information: Note initiated : 06/09/22 at 2:10 pm Service Date, if different from initiated Date: [] Patient: Tanvir Fontana Jr 56 y/o M admitted on 06/08/22 for blister on foot. Chief Complaint: [] Interval history: Mr. Addi Singh is a 56 year old M history of type 2 diabetes mellitus, diabetic foot ulcer of the left heel, chronic kidney disease stage IV, essential hypertensions, dyslipidemia, obesity, presenting with 5-day history of nonhealing left foot ulcer. He had a history of acute left healed ulcer. Last Monday he presented to our ED for a new ulcer between the base of his first and second left toe. He was being discharged home with oral antibiotics Augmentin and doxycycline for it. He finished 5-day course of dosed oral antibiotics and he presented to Dr. Malik clinic today for further evaluations. The ulceration/infection was deemed to be not healing despite 5-day course of oral antibiotics, so he was being told to come to the ED for reevaluations. Patient's denies any pain of his left foot. He is complaining of some general body weakness. He denies any other systemic symptoms such as change in his appetite, fever, chills, or diaphoresis. His vital sign is unremarkable. Labs significant for lack of leukocytosis with WBC 9.5. CRP 5.4. Procalcitonin 0.34. ESR pending. Lactic acid pending. Blood glucose level 297. Serum creatinine level 3.4 with baseline 2.6. Admission request was called for diabetic foot infections. 06/09: Afebrile overnight. Left foot x-ray did not show any bony involvement; it only shows soft tissue swelling consistent with diabetic ulcer. Blood culture and wound culture no growth today. MRSA screening negative. Fasting glucose 161 this morning. Patient denies any left foot pain. He denies any subjective fever, chills, or diaphoresis. Continue empiric antibiotics with Cefepime and Gentamicin. d/c Vancomycin due to negative MRSA screening. Continue daily wound care as per Dr. Malik. Continue basal bolus insulin therapy. Constitutional Vitals: Vital Signs Temp Pulse Resp BP Pulse Ox O2 Del Method 37.0 C 69 14 169/76 98 06/09/22 08:00 06/09/22 08:00 06/09/22 08:00 06/09/22 08:00 06/09/22 10:05 06/09/22 10:05 Period Temp Pulse Resp BP Sys/Saucedo Pulse Ox O2 Del Method O2 Flow Rate Last 24 Hr 36.1 C-37.0 C 50-69 14-16 131-190/60-84 94-99 Room Air-Room Air Intake and Output 06/09/22 06/09/22 06/09/22 03:59 11:59 19:59 Intake Total 2280 236 1236 Balance 2280 236 1236 Weight 128.004 kg Intake & Output: Intake & Output 06/09/22 06/09/22 06/09/22 03:59 11:59 19:59 Intake Total 2280 236 1236 Balance 2280 236 1236 Weight 128.004 kg Intake: IV 1000 1000 Sodium Chloride 0.9% 1,000 ml @ 1000 1000 100 mls/hr IV .Q10H [facility] Rx#: [id number] Oral 1280 236 236 Other: Meal Breakfast Lunch Percent of Meal Consumed 100% 75% # Voids 4 1 Head Head exam: Present atraumatic and normal inspection Eye Eye exam: Present normal appearance ENT ENT exam: Present mucous membranes moist, normal exam and normal external ear exam Neck Neck exam: Present normal inspection Respiratory Respiratory exam: Present normal respiratory exam Cardiovascular Cardiovascular exam: Present normal rate and rhythm GI/Abdominal GI/Abdominal exam: Present normal bowel sounds Extremities Exam Extremities exam: Present full ROM; Absent normal inspection Additional comments: 1 inch stage 3 ulcer of the left foot plantar aspect between the base of 1st and 2nd toes, with clear discharge, no foul smelling, and surrounding erythema spreading to the entire half of the anterior foot. Back Exam Back exam: Present normal inspection Neurological Exam Neurological exam: Present alert and oriented X3 Skin Skin exam: Present intact and warm OBJ DATA Labs CBC & Chem 7: 06/09/22 04:59 Labs: Abnormal Lab Results 06/09/22 06/08/22 06/08/22 04:59 14:55 14:50 RBC 4.07 L Hgb 11.4 L Hct 35.2 L POC Hct Plt Count 116 L MPV 8.0 L Immature Gran % (Auto) 1.0 H Lymph % (Auto) Lymph # (Auto) Immature Gran # 0.09 H ESR 90 H POC BUN POC Creatinine POC Glucose Hemoglobin A1c 7.8 H C-Reactive Protein Procalcitonin 06/08/22 06/08/22 06/08/22 10:39 10:39 10:39 RBC 4.07 L Hgb 11.5 L Hct 34.6 L POC Hct Plt Count 135 L MPV 8.2 L Immature Gran % (Auto) 0.9 H Lymph % (Auto) 14.4 L Lymph # (Auto) 1.37 L Immature Gran # 0.09 H ESR POC BUN POC Creatinine POC Glucose Hemoglobin A1c C-Reactive Protein 5.40 H Procalcitonin 0.34 H 06/08/22 10:36 RBC Hgb Hct POC Hct 35.0 L Plt Count MPV Immature Gran % (Auto) Lymph % (Auto) Lymph # (Auto) Immature Gran # ESR POC BUN 67 H POC Creatinine 3.4 H POC Glucose 297 H Hemoglobin A1c C-Reactive Protein Procalcitonin Meds: Medications Acetaminophen (Acetaminophen 325 Mg Tablet) 650 mg PO Q6HP PRN; Protocol PRN Reason: Per Pain Protocol/Fever > 101 Last Admin: 06/08/22 20:30 Dose: 650 mg Hydrocodone Bitart/Acetaminophen (Hydrocodone/Apap 10/325mg Tablet) 1 tab PO 5XD PRN; Protocol PRN Reason: Pain Last Admin: 06/09/22 09:43 Dose: 1 tab Albuterol/Ipratropium (Ipratropium/Albuterol 3 Ml Ampul.Neb) 3 ml NEB Q4HRT PRN PRN Reason: Wheezing Allopurinol (Allopurinol 100 Mg Tablet) 100 mg PO QDAY [facility] Last Admin: 06/09/22 09:44 Dose: 100 mg Amlodipine Besylate (Amlodipine 10 Mg Tablet) 10 mg PO HS [facility] Last Admin: 06/08/22 20:31 Dose: 10 mg Aspirin (Aspirin 81 Mg Tab.Chew) 81 mg PO DAILY [facility] Last Admin: 06/09/22 09:46 Dose: 81 mg Atorvastatin Calcium (Atorvastatin 40 Mg Tablet) 40 mg PO QHS [facility] Last Admin: 06/08/22 20:31 Dose: 40 mg Baclofen (Baclofen 10 Mg Tablet) 10 mg PO DAILY [facility] Last Admin: 06/09/22 09:46 Dose: 10 mg Baclofen (Baclofen 10 Mg Tablet) 20 mg PO HS [facility] Last Admin: 06/08/22 20:31 Dose: 20 mg Calcitriol (Calcitriol 0.25 Mcg Capsule) 0.25 mcg PO MoWeFr@0900 [facility] Carvedilol (Carvedilol 3.125 Mg Tablet) 3.125 mg PO BIDCC [facility] Last Admin: 06/09/22 09:45 Dose: 3.125 mg Cefepime HCl (Cefepime 1 Gm Vial) 1 gm IV Q8H [facility]; Protocol Last Admin: 06/09/22 05:32 Dose: 1 gm Clonazepam (Clonazepam 1 Mg Tablet) 1 mg PO BID PRN PRN Reason: anxiety Dextrose (Dextrose 50% 50 Ml Vial) 0 ml IV UD PRN PRN Reason: Per Sliding Scale Diagnostic Test (Pha) (Accu-Chek 1 Each Strip) 1 each FS ACHS [facility] Last Admin: 06/09/22 12:04 Dose: 1 each Docusate Sodium (Docusate Sodium 100 Mg Capsule) 100 mg PO BID [facility] Last Admin: 06/09/22 09:47 Dose: 100 mg Ferrous Sulfate (Ferrous Sulfate 325 Mg Tablet) [facility] Last Admin: 06/09/22 09:46 Dose: 325 mg Fluoxetine HCl (Fluoxetine Hcl 20 Mg Capsule) 80 mg PO QDAY [facility] Last Admin: 06/09/22 09:48 Dose: 80 mg Folic Acid (Folic Acid 1 Mg Tablet) 1 mg PO QDAY [facility] Last Admin: 06/09/22 09:46 Dose: 1 mg Gabapentin (Gabapentin 400 Mg Capsule) 400 mg PO DAILY [facility] Last Admin: 06/09/22 09:45 Dose: 400 mg Gabapentin (Gabapentin 400 Mg Capsule) 800 mg PO [facility] Last Admin: 06/08/22 20:32 Dose: 800 mg Glucose (Dextrose 31 Gm Oral.Susp) 15 gm PO PRN PRN PRN Reason: Hypoglycemia Sodium Chloride (Sodium Chloride 0.9%) 1,000 mls @ 100 mls/hr IV .Q10H [facility] Last Admin: 06/09/22 12:33 Dose: 100 mls/hr Gentamicin Sulfate 40 mg/Clindamycin Phosphate 300 mg/Sodium Chloride 503 mls @ 0 mls/hr IRR Q24H [facility] Insulin Glargine (Insulin Glargine, Human 1 Unit/0.01 Ml) 40 unit SQ DAILY [facility] Last Admin: 06/09/22 09:56 Dose: 40 units Insulin Glargine (Insulin Glargine, Human 1 Unit/0.01 Ml) 60 unit SQ [facility] Last Admin: 06/08/22 20:29 Dose: 60 unit Insulin Human Lispro (Insulin Lispro 1 Unit/0.01 Ml Unit) 0 unit SQ [facility]; Protocol Last Admin: 06/09/22 12:05 Dose: 6 unit Insulin Human Lispro (Insulin Lispro 1 Unit/0.01 Ml Unit) 6 unit SQ QACLUNCH [facility] Lactobacillus Rhamnosus (Lactobacillus 1 Capsule) 1 cap PO BID [facility] Last Admin: 06/09/22 09:48 Dose: 1 cap Morphine Sulfate (Morphine 4 Mg/Ml Vial) 4 mg IV Q4HP PRN; Protocol PRN Reason: Per Pain Protocol Omeprazole (Omeprazole 20 Mg Capsule) 20 mg PO [facility] Last Admin: 06/08/22 20:31 Dose: 20 mg Ondansetron HCl (Ondansetron 4 Mg/2 Ml Vial) 4 mg IV Q6HP PRN PRN Reason: Nausea And Vomiting Senna (Sennosides 1 Tablet) 2 tab PO [facility] Last Admin: 06/08/22 20:31 Dose: 2 tab Sodium Chloride (0.9 % Sodium Chloride 10 Ml Syringe) 10 ml IV Q8 [facility] Last Admin: 06/09/22 05:32 Dose: Not Given Tamsulosin HCl (Tamsulosin 0.4 Mg Capsule) 0.4 mg PO [facility] Last Admin: 06/08/22 20:31 Dose: 0.4 mg Travoprost (Travoprost Ophth Drops Bottle 2.5ml) 1 gtt OU QPM [facility] Last Admin: 06/08/22 22:03 Dose: Not Given Trazodone HCl (Trazodone Hcl 50 Mg Tablet) 25 mg PO HSP PRN PRN Reason: Insomnia Vancomycin HCl (Vancomycin Per Pharmacy) 1 order IV UD [facility]; Protocol Vitamin D (Vitamin D3 125 Mcg Tablet) 125 mcg PO DAILY [facility] Last Admin: 06/09/22 09:46 Dose: 125 mcg A/P Assessment and plan (1) Hyperlipidemia: Status: Chronic Comment: 02/19/2021 stable, but triglycerides deteriorated, continue atorvastatin 40, discussed ways to improve HDL, follow-up 3 months 02/15/2022 triglycerides elevated, continue atorvastatin 40, recheck in 3 months and then follow-up with me 06/01/22 stable continue atorvastatin, labs in July and then follow-up with me (2) Diabetic foot ulcer associated with type 2 diabetes mellitus, with fat layer exposed: Status: Acute (3) Type 2 diabetes mellitus with diabetic nephropathy: Status: Acute Comment: Followed by nephrology (4) Morbid (severe) obesity due to excess calories: Status: Acute Comment: 03/23/2022 refer to pulmonology for sleep study (5) Type 2 DM with CKD stage 4 and hypertension: Status: Chronic Comment: Followed by nephrology (6) Anemia in stage 4 chronic kidney disease: Status: Chronic (7) Stage 2 acute kidney injury: Status: Acute Narrative A/P Narrative: Assessment and Plans: 1. Left diabetic foot with ulcer in the plantar aspect of the foot between bases of 1st and 2nd toes: Inpatient med surg Consult Dr. Smith for surgical management, recs. appreciated Wound care consult Start with XR to look for evidence of osteomyelitis. If needed, consider CT or MRI when renal functions improve SCDs Serial lactic acid 0.7 Procalcitonin 0.34 ESR 90 and CRP 5.4 cbc w/ auto diff in the morning to trend WBC MRSA screening negative, d/c Vancomycin Cefepime Gentamicin Tylenol PRN fever/mild pain [place] PRN moderate pain Morphine IV PRN severe pain Physical therapy HgA1c 7.8 Glargine 40 unit AM and 60 unit PM Lispro 6 unit At lunch or dinner time plus SSI AC HS Accu Check AC HS Hypoglycemia protocol Diabetic diet 2. Anemia in CKD4: cbc w/ auto diff in the morning to trend H/H 3. Stage 2 acute kidney injury with chronic kidney disease IV: Avoid nephrotoxic agents NS@100cc/hr CMP in the morning to trend kidney functions 4. Essential hypertension: Amlodipine Coreg Holding Lasix in the context of acute kidney injury Holding Losartan in the context of acute kidney injury 5. Hyperlipidemia: Continue statin therapy 6. Morbid obesity: Alteration Inspector patient on life style modifications including regular exercise and healthy diet in order to lose weight GI ppx: not currently indicated DVT ppx: SCDs Code status: Full Prognosis: Stable Disposition: inpatient med surg Plan of Treatment: Plan: Local wound care, IV antibiotics. Await deep tissue c/s from 06/08/2022 Time Spent With Patient Time: Total time spent is greater than 50% in coordination of care (as documented) at patient's floor/unit and/or counseling patient: Total time spent with greater than 50% in coordination of care (as documented) a t patient's floor/unit and/or counseling patient:: 25 - 35 minutes QUALITY VTE Deep Vein Thrombosis/Pulmonary Embolism Present on Admission: No
[2022-06-09] MEDS: ATORVASTATIN 40 MG TABLET PO SCH (20:19)
[2022-06-09] MEDS: TAMSULOSIN 0.4 MG CAPSULE PO SCH (20:19)
[2022-06-09] MEDS: OMEPRAZOLE 20 MG CAPSULE PO SCH (20:19)
[2022-06-09] MEDS: amLODIPine 10 MG TABLET PO SCH (20:20)
[2022-06-09] MEDS: SENNOSIDES 1 TABLET PO SCH (20:20)
[2022-06-09] MEDS: TRAVOPROST OPHTH DROPS BOTTLE 2.5ML OU SCH (20:22)
[2022-06-09] MEDS ORDERED: INSULIN GLARGINE, HUMAN 1 UNIT/0.01 ML SQ SCH (21:00)
[2022-06-09] MEDS: GENTAMICIN SULFATE 40 MG, CLINDAMYCIN 300 MG in SODIUM CHLORIDE IRRIG SOLUTION 500 ML IRR SCH (22:34)
[2022-06-10] MEDS: 0.9 % SODIUM CHLORIDE 1,000 ML IV SCH (00:02)
[2022-06-10] MEDS: DEXTROSE 5%-NS 1,000 ML IV SCH ×2 (02:42→13:00)
[2022-06-10] MEDS: 0.9 % SODIUM CHLORIDE 10 ML SYRINGE IV SCH ×4 (05:11→21:45)
[2022-06-10] MEDS: CEFEPIME 1 GM VIAL IV SCH ×3 (05:36→21:47)
[2022-06-10 06:34] LABS: Basophils # (Auto) 0.03 K/mcL (0.00-0.30); Basophils % (Auto) 0.3 % (0.0-2.0); Eosinophils # (Auto) 0.39 K/mcL (0.00-0.70); Eosinophils % (Auto) 4.5 % (0.0-7.0); Hematocrit 33.2 % (40.1-51.0); Hemoglobin 10.7 g/dL (13.7-17.5); Lymphocytes # (Auto) 1.58 K/mcL (1.50-4.80); Lymphocytes % (Auto) 18.4 % (15.5-49.0); Mean Cell Volume 87.6 fL (80.0-100.0); Mean Corpuscular HGB Conc 32.2 g/dL (31.0-36.0); Mean Platelet Volume 8.5 fL (8.8-12.5); Monocytes # (Auto) 0.57 K/mcL (0.10-0.90); Monocytes % (Auto) 6.6 % (1.0-12.0); Neutrophils % (Auto) 69.3 % (38.0-78.0); Platelet Count 113 K/mcL (140-440); RBC 3.79 M/mcL (4.63-6.08); Red Cell Distribution Width 13.4 % (11.5-14.5); WBC 8.6 K/mcL (4.5-11.0)
[2022-06-10 06:45] LABS: Vancomycin,Random 14.5 ug/mL
[2022-06-10 06:46] LABS: ALT/SGPT 9 U/L (<40); AST/SGOT 11 U/L (<40); Albumin 3.4 gm/dL (3.2-5.2); Alkaline Phosphatase 73 U/L (39-117); Bilirubin,Total 0.2 mg/dL (0.1-1.0); Blood Urea Nitrogen 43 mg/dL (6-20); Calcium 9.3 mg/dL (8.6-10.4); Carbon Dioxide 26 mmol/L (22-30); Chloride 103 mmol/L (96-108); Globulin 3.5 gm/dL (2.2-3.7); Glomerular Filtration Rate 26; Glucose 118 mg/dL (70-105)
[2022-06-10] MEDS: INSULIN LISPRO 1 UNIT/0.01 ML UNIT SQ SCH ×4 (07:46→21:22)
[2022-06-10] MEDS: CARVEDILOL 3.125 MG TABLET PO SCH ×2 (07:53→17:43)
[2022-06-10] MEDS: FERROUS SULFATE 325 MG TABLET PO SCH (07:53)
[2022-06-10] MEDS: GABAPENTIN 400 MG CAPSULE PO SCH ×2 (08:54→21:19)
[2022-06-10] MEDS: ASPIRIN 81 MG TAB.CHEW PO SCH (08:54)
[2022-06-10] MEDS: DOCUSATE SODIUM 100 MG CAPSULE PO SCH ×2 (08:54→21:21)
[2022-06-10] MEDS: FOLIC ACID 1 MG TABLET PO SCH (08:55)
[2022-06-10] MEDS: CALCITRIOL 0.25 MCG CAPSULE PO SCH (08:55)
[2022-06-10] MEDS: ALLOPURINOL 100 MG TABLET PO SCH (08:55)
[2022-06-10] MEDS: FLUoxetine HCL 20 MG CAPSULE PO SCH (08:55)
[2022-06-10] MEDS: BACLOFEN 10 MG TABLET PO SCH ×2 (08:55→21:20)
[2022-06-10] MEDS: VITAMIN D3 125 MCG TABLET PO SCH (08:55)
[2022-06-10] MEDS: LACTOBACILLUS 1 CAPSULE PO SCH ×2 (08:55→21:21)
[2022-06-10] MEDS: HYDROcodone/APAP 10/325MG TABLET PO PRN ×4 (09:03→20:58)
[2022-06-10] MEDS: INSULIN GLARGINE, HUMAN 1 UNIT/0.01 ML SQ SCH (09:07)
[2022-06-10] MEDS: ONDANSETRON 4 MG/2 ML VIAL IV PRN (09:40)
--- NOTE | 2022-06-10 11:23 | General Surgery Progress Note ---
SUBJECTIVE Subjective Patient information: Note initiated : 06/10/22 at 11:18 am Service Date, if different from initiated Date: [] Patient: Tanvir Fontana Jr 56 y/o M admitted on 06/08/22 for blister on foot. Chief Complaint: [] Additional PMFSH (Level 3 Only): Patient seen along with Alem VERDIN. Had an uneventful night. Large BM today. OOB to heel WB. Feeling good. Constitutional Vitals: Vital Signs Temp Pulse Resp BP Pulse Ox O2 Del Method 97.2 F 56 L 16 135/70 91 06/10/22 08:00 06/10/22 08:00 06/10/22 08:00 06/10/22 08:00 06/10/22 08:35 06/10/22 08:35 Period Temp Pulse Resp BP Sys/Saucedo Pulse Ox O2 Del Method O2 Flow Rate Last 24 Hr 97.0 F-98.6 F 56-107 14-20 119-159/59-99 91-99 Room Air-Room Air Intake and Output 06/09/22 06/10/22 06/10/22 19:59 03:59 11:59 Intake Total 2135 1967 1040 Balance 2135 1967 104 Weight 288 lb 6.4 oz Intake & Output: Intake & Output 06/09/22 06/10/22 06/10/22 19:59 03:59 11:59 Intake Total 2135 1967 1040 Balance 2135 1967 104 Weight 288 lb 6.4 oz Intake: IV 1100 1268 0 Sodium Chloride 0.9% 1,000 ml @ 1000 1268 0 100 mls/hr IV .Q10H [facility] Rx#: [id number] Vancomycin 500 mg In Sodium 100 Chloride 0.9% 100 ml @ 100 mls/ hr IV ONCE ONE Rx#:[id number] Oral 1055 194 9577 Other: Meal Dinner Yogurt Percent of Meal Consumed 100% 100% Feeding Ability Independent Independent Urine Appearance Clear Urine Color Yellow Stool Size Large Stool Color Brown Stool Consistency Soft Formed # Voids 1 1 1 Exam: AVSS: [facility] unremarkable. Labs: WBC trending down. Tissue c/s NO growth thus far. Blood c/s Negative MRSA screen Negative EXAMINED wound : Resolving inflammatory changes,. A/P Narrative A/P Narrative: Assessment: Satisfactory progress. Plan of Treatment: Plan: Local wound care, IV antibiotics. Await deep tissue c/s from 06/08/2022 Time Spent With Patient Time: Total time spent is greater than 50% in coordination of care (as documented) at patient's floor/unit and/or counseling patient: Total time spent with greater than 50% in coordination of care (as documented) at patient's floor/unit and/or counseling patient:: 25 - 35 minutes
[2022-06-10] MEDS: GENTAMICIN SULFATE 40 MG, CLINDAMYCIN 300 MG in SODIUM CHLORIDE IRRIG SOLUTION 500 ML IRR SCH (12:23)
--- NOTE | 2022-06-10 13:16 | Internal Med Progress Note ---
SUBJECTIVE Subjective Patient information: Note initiated : 06/10/22 at 1:09 pm Service Date, if different from initiated Date: [] Patient: Tanvir Fontana Jr 56 y/o M admitted on 06/08/22 for blister on foot. Chief Complaint: [] Interval history: Mr. Addi Singh is a 56 year old M history of type 2 diabetes mellitus, diabetic foot ulcer of the left heel, chronic kidney disease stage IV, essential hypertensions, dyslipidemia, obesity, presenting with 5-day history of nonhealing left foot ulcer. He had a history of acute left healed ulcer. Last Monday he presented to our ED for a new ulcer between the base of his first and second left toe. He was being discharged home with oral antibiotics Augmentin and doxycycline for it. He finished 5-day course of dosed oral antibiotics and he presented to Dr. Malik clinic today for further evaluations. The ulceration/infection was deemed to be not healing despite 5-day course of oral antibiotics, so he was being told to come to the ED for reevaluations. Patient's denies any pain of his left foot. He is complaining of some general body weakness. He denies any other systemic symptoms such as change in his appetite, fever, chills, or diaphoresis. His vital sign is unremarkable. Labs significant for lack of leukocytosis with WBC 9.5. CRP 5.4. Procalcitonin 0.34. ESR pending. Lactic acid pending. Blood glucose level 297. Serum creatinine level 3.4 with baseline 2.6. Admission request was called for diabetic foot infections. 06/09: Afebrile overnight. Left foot x-ray did not show any bony involvement; it only shows soft tissue swelling consistent with diabetic ulcer. Blood culture and wound culture no growth to date. MRSA screening negative. Fasting glucose 161 th is morning. Patient denies any left foot pain. He denies any subjective fever, chills, or diaphoresis. Continue empiric antibiotics with Cefepime and Gentamicin. d/c Vancomycin due to negative MRSA screening. Continue daily wound care as per Dr. Malik. Continue basal bolus insulin therapy. 06/10: Afebrile overnight. Blood culture and wound culture no growth to date. Serum creatinine level 2.6 this morning, back to the baseline. Hypoglycemia episode overnight earlier this morning also was in the 70s. Patient denies any left foot pain. He denies any subjective fever, chills, or diaphoresis. We will saline lock the patient's. We will decreased the Lantus dosing to the followin unit AM and 20 unit HS to avoid hypoglycemia episode. Continue empiric antibiotics with Cefepime and Gentamicin. Continue daily wound care as per Dr. Malik. Physical therapy evaluation and treatment. Constitutional Vitals: Vital Signs Temp Pulse Resp BP Pulse Ox O2 Del Method 36.8 C 62 16 159/76 96 06/10/22 11:43 06/10/22 11:43 06/10/22 11:43 06/10/22 11:43 06/10/22 11:43 06/10/22 11:43 Period Temp Pulse Resp BP Sys/Saucedo Pulse Ox O2 Del Method O2 Flow Rate Last 24 Hr 36.1 C-36.9 C 56-107 14-20 135-159/70-99 91-99 Room Air-Room Air Intake and Output 06/10/22 06/10/22 06/10/22 03:59 11:59 19:59 Intake Total 1967 1040 925 Balance 1967 1040 925 Intake & Output: Intake & Output 06/10/22 06/10/22 06/10/22 03:59 11:59 19:59 Intake Total 1967 1040 925 Balance 1967 1040 925 Intake: IV 1268 0 925 Sodium Chloride 0.9% 1,000 ml @ 1268 0 100 mls/hr IV .Q10H [facility] Rx#: [id number] Dextrose 5%-Ns IV Solution 1, 925 000 ml @ 100 mls/hr IV .Q10H [facility] Rx#:[id number] Oral 700 1040 Other: Meal [place]og[place] Percent of Meal Consumed 100% Feeding Ability Independent Urine Appearance Clear Urine Color Yellow Stool Size Large Stool Color Brown Stool Consistency Soft Formed # Voids 1 1 Head Head exam: Present atraumatic and normal inspection Eye Eye exam: Present normal appearance ENT ENT exam: Present mucous membranes moist, normal exam and normal external ear exam Neck Neck exam: Present normal inspection Respiratory Respiratory exam: Present normal respiratory exam Cardiovascular Cardiovascular exam: Present normal rate and rhythm GI/Abdominal GI/Abdominal exam: Present normal bowel sounds Extremities Exam Extremities exam: Present full ROM; Absent normal inspection Additional comments: 1 inch stage 3 ulcer of the left foot plantar aspect between the base of 1st and 2nd toes, with clear discharge, no foul smelling, and surrounding erythema spreading to the entire half of the anterior foot. Back Exam Back exam: Present normal inspection Neurological Exam Neurological exam: Present alert and oriented X3 Skin Skin exam: Present warm; Absent intact Additional comments: 1 inch stage 3 ulcer of the left foot plantar aspect between the base of 1st and 2nd toes, with clear discharge, no foul smelling, and surrounding erythema spreading to the entire half of the anterior foot. OBJ DATA Labs CBC & Chem 7: 06/10/22 05:34 06/10/22 05:34 Labs: Abnormal Lab Results 06/10/22 06/10/22 06/09/22 05:34 05:34 04:59 RBC 3.79 L 4.07 L Hgb 10.7 L 11.4 L Hct 33.2 L 35.2 L POC Hct Plt Count 113 L 116 L MPV 8.5 L 8.0 L Immature Gran % (Auto) 0.9 H 1.0 H Lymph % (Auto) Lymph # (Auto) Immature Gran # 0.08 H 0.09 H ESR POC BUN BUN 43 H Creatinine 2.6 H POC Creatinine Glucose 118 H POC Glucose Hemoglobin A1c C-Reactive Protein Procalcitonin 06/08/22 06/08/22 06/08/22 14:55 14:50 10:39 RBC Hgb Hct POC Hct Plt Count MPV Immature Gran % (Auto) Lymph % (Auto) Lymph # (Auto) Immature Gran # ESR 90 H POC BUN BUN Creatinine POC Creatinine Glucose POC Glucose Hemoglobin A1c 7.8 H C-Reactive Protein Procalcitonin 0.34 H 06/08/22 06/08/22 06/08/22 10:39 10:39 10:36 RBC 4.07 L Hgb 11.5 L Hct 34.6 L POC Hct 35.0 L Plt Count 135 L MPV 8.2 L Immature Gran % (Auto) 0.9 H Lymph % (Auto) 14.4 L Lymph # (Auto) 1.37 L Immature Gran # 0.09 H ESR POC BUN 67 H BUN Creatinine POC Creatinine 3.4 H Glucose POC Glucose 297 H Hemoglobin A1c C-Reactive Protein 5.40 H Procalcitonin Meds: Medications Acetaminophen (Acetaminophen 325 Mg Tablet) 650 mg PO Q6HP PRN; Protocol PRN Reason: Per Pain Protocol/Fever > 101 Last Admin: 06/08/22 20:30 Dose: 650 mg Hydrocodone Bitart/Acetaminophen (Hydrocodone/Apap 10/325mg Tablet) 1 tab PO 5XD PRN; Protocol PRN Reason: Pain Last Admin: 06/10/22 09:03 Dose: 1 tab Albuterol/Ipratropium (Ipratropium/Albuterol 3 Ml Ampul.Neb) 3 ml NEB Q4HRT PRN PRN Reason: Wheezing Allopurinol (Allopurinol 100 Mg Tablet) 100 mg PO QDAY [facility] Last Admin: 06/10/22 08:55 Dose: 100 mg Amlodipine Besylate (Amlodipine 10 Mg Tablet) 10 mg PO HS [facility] Last Admin: 06/09/22 20:20 Dose: 10 mg Aspirin (Aspirin 81 Mg Tab.Chew) 81 mg PO DAILY [facility] Last Admin: 06/10/22 08:54 Dose: 81 mg Atorvastatin Calcium (Atorvastatin 40 Mg Tablet) 40 mg PO QHS [facility] Last Admin: 06/09/22 20:19 Dose: 40 mg Baclofen (Baclofen 10 Mg Tablet) 10 mg PO DAILY [facility] Last Admin: 06/10/22 08:55 Dose: 10 mg Baclofen (Baclofen 10 Mg Tablet) 20 mg PO HS [facility] Last Admin: 06/09/22 20:20 Dose: 20 mg Calcitriol (Calcitriol 0.25 Mcg Capsule) 0.25 mcg PO MoWeFr@0900 [facility] Last Admin: 06/10/22 08:55 Dose: 0.25 mcg Carvedilol (Carvedilol 3.125 Mg Tablet) 3.125 mg PO BIDCC [facility] Last Admin: 06/10/22 07:53 Dose: 3.125 mg Cefepime HCl (Cefepime 1 Gm Vial) 1 gm IV Q8H [facility]; Protocol Last Admin: 06/10/22 05:36 Dose: 1 gm Clonazepam (Clonazepam 1 Mg Tablet) 1 mg PO BID PRN PRN Reason: anxiety Dextrose (Dextrose 50% 50 Ml Vial) 0 ml IV UD PRN PRN Reason: Per Sliding Scale Diagnostic Test (Pha) (Accu-Chek 1 Each Strip) 1 each FS ACHS [facility] Last Admin: 06/10/22 12:23 Dose: 1 each Docusate Sodium (Docusate Sodium 100 Mg Capsule) 100 mg PO BID [facility] Last Admin: 06/10/22 08:54 Dose: 100 mg Ferrous Sulfate (Ferrous Sulfate 325 Mg Tablet) 325 mg PO QAMCC [facility] Last Admin: 06/10/22 07:53 Dose: 325 mg Fluoxetine HCl (Fluoxetine Hcl 20 Mg Capsule) 80 mg PO QDAY [facility] Last Admin: 06/10/22 08:55 Dose: 80 mg Folic Acid (Folic Acid 1 Mg Tablet) 1 mg PO QDAY [facility] Last Admin: 06/10/22 08:55 Dose: 1 mg Gabapentin (Gabapentin 400 Mg Capsule) 400 mg PO DAILY [facility] Last Admin: 06/10/22 08:54 Dose: 400 mg Gabapentin (Gabapentin 400 Mg Capsule) 800 mg PO [facility] Last Admin: 06/09/22 20:19 Dose: 800 mg Glucose (Dextrose 31 Gm Oral.Susp) 15 gm PO PRN PRN PRN Reason: Hypoglycemia Gentamicin Sulfate 40 mg/Clindamycin Phosphate 300 mg/Sodium Chloride 503 mls @ 0 mls/hr IRR Q24H [facility] Last Admin: 06/10/22 12:23 Dose: 1 mls/hr Insulin Glargine (Insulin Glargine, Human 1 Unit/0.01 Ml) 40 unit SQ DAILY [facility] Last Admin: 06/10/22 09:07 Dose: 40 units Insulin Glargine (Insulin Glargine, Human 1 Unit/0.01 Ml) 20 unit SQ [facility] Insulin Human Lispro (Insulin Lispro 1 Unit/0.01 Ml Unit) 0 unit SQ [facility]; Protocol Last Admin: 06/10/22 12:44 Dose: 2 unit Insulin Human Lispro (Insulin Lispro 1 Unit/0.01 Ml Unit) 6 unit SQ QACLUNCH [facility] Lactobacillus Rhamnosus (Lactobacillus 1 Capsule) 1 cap PO BID [facility] Last Admin: 06/10/22 08:55 Dose: 1 cap Morphine Sulfate (Morphine 4 Mg/Ml Vial) 4 mg IV Q4HP PRN; Protocol PRN Reason: Per Pain Protocol Omeprazole (Omeprazole 20 Mg Capsule) 20 mg PO [facility] Last Admin: 06/09/22 20:19 Dose: 20 mg Ondansetron HCl (Ondansetron 4 Mg/2 Ml Vial) 4 mg IV Q6HP PRN PRN Reason: Nausea And Vomiting Last Admin: 06/10/22 09:40 Dose: 4 mg Senna (Sennosides 1 Tablet) 2 tab PO [facility] Last Admin: 06/09/22 20:20 Dose: 2 tab Sodium Chloride (0.9 % Sodium Chloride 10 Ml Syringe) 10 ml IV Q8 [facility] Last Admin: 06/10/22 05:36 Dose: 10 ml Tamsulosin HCl (Tamsulosin 0.4 Mg Capsule) 0.4 mg PO HS [facility] Last Admin: 06/09/22 20:19 Dose: 0.4 mg Travoprost (Travoprost Ophth Drops Bottle 2.5ml) 1 gtt OU QPM [facility] Last Admin: 06/09/22 20:22 Dose: Not Given Trazodone HCl (Trazodone Hcl 50 Mg Tablet) 25 mg PO HSP PRN PRN Reason: Insomnia Vitamin D (Vitamin D3 125 Mcg Tablet) 125 mcg PO DAILY [facility] Last Admin: 06/10/22 08:55 Dose: 125 mcg A/P Assessment and plan (1) Hyperlipidemia: Status: Chronic Comment: 02/19/2021 stable, but triglycerides deteriorated, continue atorvastatin 40, discussed ways to improve HDL, follow-up 3 months 02/15/2022 triglycerides elevated, continue atorvastatin 40, recheck in 3 months and then follow-up with me 06/01/22 stable continue atorvastatin, labs in July and then follow-up with [place] (2) Diabetic foot ulcer associated with type 2 diabetes mellitus, with fat layer exposed: Status: Acute (3) Type 2 diabetes mellitus with diabetic nephropathy: Status: Acute Comment: Followed by nephrology (4) Morbid (severe) obesity due to excess calories: Status: Acute Comment: 03/23/2022 refer to pulmonology for sleep study (5) Type 2 DM with CKD stage 4 and hypertension: Status: Chronic Comment: Followed by nephrology (6) Anemia in stage 4 chronic kidney disease: Status: Chronic (7) Stage 2 acute kidney injury: Status: Acute Narrative A/P Narrative: Assessment and Plans: 1. Left diabetic foot with ulcer in the plantar aspect of the foot between bases of 1st and 2nd toes: Inpatient med surg Consult Dr. Smith for surgical management, recs. appreciated Left foot XR only showing soft tissue swelling without evidence of bony involvement SCDs Serial lactic acid 0.7 Procalcitonin 0.34 ESR 90 and CRP 5.4 cbc w/ auto diff in the morning to trend WBC MRSA screening negative, d/c Vancomycin Blood culture: no growth to date Wound culture: no growth to date Cefepime Gentamicin Tylenol PRN fever/mild pain [place] PRN moderate pain Morphine IV PRN severe pain Physical therapy HgA1c 7.8 Glargine 40 unit AM and 20 unit HS to avoid hypoglycemia episode Lispro 6 unit At lunch or dinner time plus SSI AC HS Accu Check AC HS Hypoglycemia protocol Diabetic diet 2. Anemia in CKD4: cbc w/ auto diff in the morning to trend H/H 3. Stage 2 acute kidney injury with chronic kidney disease IV: Avoid nephrotoxic agents Kidney functions back to the baseline, saline lock CMP in the morning to trend kidney functions 4. Essential hypertension: Amlodipine [employer] Lasix given recent acute kidney injury Resume Losartan 5. Hyperlipidemia: Continue statin therapy 6. Morbid obesity: [employer] patient on life style modifications including regular exercise and healthy diet in order to lose weight GI ppx: Prilosec DVT ppx: Heparin Code status: Full Prognosis: Stable Disposition: inpatient med surg Plan of Treatment: Plan: Local wound care, IV antibiotics. Await deep tissue c/s from 06/08/2022 Time Spent With Patient Time: Total time spent is greater than 50% in coordination of care (as documented) at patient's floor/unit and/or counseling patient: Total time spent with greater than 50% in coordination of care (as documented) at patient's floor/unit and/or counseling patient:: 25 - 35 minutes QUALITY VTE Deep Vein Thrombosis/Pulmonary Embolism Present on Admission: No
[2022-06-10] MEDS ORDERED: INSULIN GLARGINE, HUMAN 1 UNIT/0.01 ML SQ SCH (21:00)
[2022-06-10] MEDS: ATORVASTATIN 40 MG TABLET PO SCH (21:19)
[2022-06-10] MEDS: OMEPRAZOLE 20 MG CAPSULE PO SCH (21:19)
[2022-06-10] MEDS: TAMSULOSIN 0.4 MG CAPSULE PO SCH (21:19)
[2022-06-10] MEDS: SENNOSIDES 1 TABLET PO SCH (21:20)
[2022-06-10] MEDS: LOSARTAN 50 MG TABLET PO SCH (21:21)
[2022-06-10] MEDS: HEPARIN 5,000 UNIT/ML VIAL SQ SCH (21:21)
[2022-06-10] MEDS: TRAVOPROST OPHTH DROPS BOTTLE 2.5ML OU SCH (21:25)
[2022-06-10] MEDS: amLODIPine 10 MG TABLET PO SCH (21:26)
[2022-06-11] MEDS: HYDROcodone/APAP 10/325MG TABLET PO PRN ×5 (03:44→23:57)
[2022-06-11] MEDS: CEFEPIME 1 GM VIAL IV SCH ×3 (05:44→21:49)
[2022-06-11] MEDS: 0.9 % SODIUM CHLORIDE 10 ML SYRINGE IV SCH ×3 (05:44→21:49)
[2022-06-11] MEDS: ONDANSETRON 4 MG/2 ML VIAL IV PRN (06:38)
[2022-06-11 06:49] LABS: Basophils # (Auto) 0.06 K/mcL (0.00-0.30); Basophils % (Auto) 0.7 % (0.0-2.0); Eosinophils # (Auto) 0.51 K/mcL (0.00-0.70); Eosinophils % (Auto) 5.8 % (0.0-7.0); Hematocrit 33.1 % (40.1-51.0); Hemoglobin 10.5 g/dL (13.7-17.5); Lymphocytes # (Auto) 2.16 K/mcL (1.50-4.80); Lymphocytes % (Auto) 24.7 % (15.5-49.0); Mean Cell Volume 88.3 fL (80.0-100.0); Mean Corpuscular HGB Conc 31.7 g/dL (31.0-36.0); Mean Platelet Volume 8.5 fL (8.8-12.5); Monocytes # (Auto) 0.56 K/mcL (0.10-0.90); Monocytes % (Auto) 6.4 % (1.0-12.0); Neutrophils % (Auto) 61.4 % (38.0-78.0); Platelet Count 102 K/mcL (140-440); RBC 3.75 M/mcL (4.63-6.08); Red Cell Distribution Width 13.6 % (11.5-14.5); WBC 8.8 K/mcL (4.5-11.0)
[2022-06-11 07:03] LABS: ALT/SGPT 10 U/L (<40); AST/SGOT 13 U/L (<40); Albumin 2.9 gm/dL (3.2-5.2); Albumin/Globulin Ratio 0.8 (1.0-2.3); Alkaline Phosphatase 79 U/L (39-117); Bilirubin,Total < 0.2 mg/dL (0.1-1.0); Blood Urea Nitrogen 38 mg/dL (6-20); Calcium 8.6 mg/dL (8.6-10.4); Carbon Dioxide 23 mmol/L (22-30); Chloride 106 mmol/L (96-108); Globulin 3.5 gm/dL (2.2-3.7); Glomerular Filtration Rate 26; Glucose 119 mg/dL (70-105)
[2022-06-11] MEDS: CARVEDILOL 3.125 MG TABLET PO SCH ×2 (07:23→16:47)
[2022-06-11] MEDS: FERROUS SULFATE 325 MG TABLET PO SCH (07:23)
[2022-06-11] MEDS: INSULIN LISPRO 1 UNIT/0.01 ML UNIT SQ SCH ×4 (07:26→21:49)
[2022-06-11] MEDS: ALLOPURINOL 100 MG TABLET PO SCH (09:21)
[2022-06-11] MEDS: BACLOFEN 10 MG TABLET PO SCH ×2 (09:21→21:48)
[2022-06-11] MEDS: INSULIN GLARGINE, HUMAN 1 UNIT/0.01 ML SQ SCH (09:22)
[2022-06-11] MEDS: VITAMIN D3 125 MCG TABLET PO SCH (09:22)
[2022-06-11] MEDS: FOLIC ACID 1 MG TABLET PO SCH (09:22)
[2022-06-11] MEDS: DOCUSATE SODIUM 100 MG CAPSULE PO SCH ×2 (09:22→21:47)
[2022-06-11] MEDS: FLUoxetine HCL 20 MG CAPSULE PO SCH (09:22)
[2022-06-11] MEDS: ASPIRIN 81 MG TAB.CHEW PO SCH (09:22)
[2022-06-11] MEDS: LACTOBACILLUS 1 CAPSULE PO SCH ×2 (09:22→21:47)
[2022-06-11] MEDS: GABAPENTIN 400 MG CAPSULE PO SCH ×2 (09:22→21:48)
[2022-06-11] MEDS: HEPARIN 5,000 UNIT/ML VIAL SQ SCH ×2 (09:23→21:50)
[2022-06-11] MEDS: GENTAMICIN SULFATE 40 MG, CLINDAMYCIN 300 MG in SODIUM CHLORIDE IRRIG SOLUTION 500 ML IRR SCH (09:23)
--- NOTE | 2022-06-11 13:33 | General Surgery Progress Note ---
SUBJECTIVE Subjective Patient information: Note initiated : 06/11/22 at 1:29 pm Service Date, if different from initiated Date: [] Patient: Tanvir Fontana Jr 56 y/o M admitted on 06/08/22 for blister on foot. Chief Complaint: [] Additional PMFSH (Level 3 Only): Patient seen. Progress reviewed with nursing staff. IV heplock. Dressing Left foot changed,. Constitutional Vitals: Vital Signs Temp Pulse Resp BP Pulse Ox O2 Del Method 97.6 F 58 L 14 159/73 97 06/11/22 12:00 06/11/22 12:00 06/11/22 12:00 06/11/22 12:00 06/11/22 12:00 06/11/22 12:00 Period Temp Pulse Resp BP Sys/Saucedo Pulse Ox O2 Del Method O2 Flow Rate Last 24 Hr 97.0 F-98.1 F 56-76 14-18 146-180/67-114 95-99 Room Air-Room Air Intake and Output 06/11/22 06/11/22 06/11/22 03:59 11:59 19:59 Intake Total 1365 800 Balance 1365 800 Weight 286 lb 14.4 oz Intake & Output: Intake & Output 06/11/22 06/11/22 06/11/22 03:59 11:59 19:59 Intake Total 1365 800 Balance 1365 800 Weight 286 lb 14.4 oz Intake: Oral 1365 800 Other: Meal [place] juice Breakfast Percent of Meal Consumed 100% Feeding Ability Independent # Voids 1 1 Exam: AVSS. [facility]: No interval changes. Wound / tissue c/s GPC. Sensitivities awaited. MRSA screen and Blood c/s Negative. Creatinine and WBC stable. A/P Narrative A/P Narrative: Assessment: Satisfactory progress. Plan of Treatment: Plan: Local wound care, IV antibiotics. Await deep tissue c/s from 06/08/2022 Time Spent With Patient Time: Total time spent is greater than 50% in coordination of care (as documented) at patient's floor/unit and/or counseling patient:
--- NOTE | 2022-06-11 15:51 | Internal Med Progress Note ---
SUBJECTIVE Subjective Patient information: Note initiated : 06/11/22 at 3:45 pm Service Date, if different from initiated Date: [] Patient: Tanvir Fontana Jr 56 y/o M admitted on 06/08/22 for blister on foot. Chief Complaint: [] Interval history: Mr. Addi Singh is a 56 year old M history of type 2 diabetes mellitus, diabetic foot ulcer of the left heel, chronic kidney disease stage IV, essential hypertensions, dyslipidemia, obesity, presenting with 5-day history of nonhealing left foot ulcer. He had a history of acute left healed ulcer. Last Monday he presented to our ED for a new ulcer between the base of his first and second left toe. He was being discharged home with oral antibiotics Augmentin and doxycycline for it. He finished 5-day course of dosed oral antibiotics and he presented to Dr. Malik clinic today for further evaluations. The ulceration/infection was deemed to be not healing despite 5-day course of oral antibiotics, so he was being told to come to the ED for reevaluations. Patient's denies any pain of his left foot. He is complaining of some general body weakness. He denies any other systemic symptoms such as change in his appetite, fever, chills, or diaphoresis. His vital sign is unremarkable. Labs significant for lack of leukocytosis with WBC 9.5. CRP 5.4. Procalcitonin 0.34. ESR pending. Lactic acid pending. Blood glucose level 297. Serum creatinine level 3.4 with baseline 2.6. Admission request was called for diabetic foot infections. 06/09: Afebrile overnight. Left foot x-ray did not show any bony involvement; it only shows soft tissue swelling consistent with diabetic ulcer. Blood culture and wound culture no growth to date. MRSA screening negative. Fasting glucose 161 th is morning. Patient denies any left foot pain. He denies any subjective fever, chills, or diaphoresis. Continue empiric antibiotics with Cefepime and Gentamicin. d/c Vancomycin due to negative MRSA screening. Continue daily wound care as per Dr. Malik. Continue basal bolus insulin therapy. 06/10: Afebrile overnight. Blood culture and wound culture no growth to date. Serum creatinine level 2.6 this morning, back to the baseline. Hypoglycemia episode overnight earlier this morning also was in the 70s. Patient denies any left foot pain. He denies any subjective fever, chills, or diaphoresis. We will saline lock the patient's. We will decreased the Lantus dosing to the followin unit AM and 20 unit HS to avoid hypoglycemia episode. Continue empiric antibiotics with Cefepime and Gentamicin. Continue daily wound care as per Dr. Malik. Physical therapy evaluation and treatment. 06/11: Another episode of near hypoglycemic episode with blood sugar of 78 early this morning, and patient was symptomatic for that with whole body shaking, as well as diaphoresis. Patient has been afebrile overnight. Blood culture and wound culture no growth to date. Also waiting for initial wound culture collected from the clinic. We will continue insulin Lantus to 40 units a.m. while discontinuing any nighttime insulin Lantus to avoid overnight hypoglycemic episode. Continue empi zoë antibiotics with Cefepime and Gentamicin while waiting for wound culture results collected from clinic. Continue daily wound care as per Dr. Malik. Physical therapy evaluation and treatment. Tentative discharge date: Monday06/13/22. Constitutional Vitals: Vital Signs Temp Pulse Resp BP Pulse Ox O2 Del Method 36.4 C 58 L 14 159/73 97 06/11/22 12:00 06/11/22 12:00 06/11/22 12:00 06/11/22 12:00 06/11/22 12:00 06/11/22 12:00 Period Temp Pulse Resp BP Sys/Saucedo Pulse Ox O2 Del Method O2 Flow Rate Last 24 Hr 36.1 C-36.7 C 56-76 14-18 146-180/67-114 95-99 Room Air-Room Air Intake and Output 06/11/22 06/11/22 06/11/22 03:59 11:59 19:59 Intake Total 1365 800 240 Balance 1365 800 240 Weight 130.136 kg Intake & Output: Intake & Output 06/11/22 06/11/22 06/11/22 03:59 11:59 19:59 Intake Total 1365 800 240 Balance 1365 800 240 Weight 130.136 kg Intake: Oral 1365 800 240 Other: Meal [place] juice Breakfast Lunch Percent of Meal Consumed 100% 100% Feeding Ability Independent Independent # Voids 1 1 2 Head Head exam: Present atraumatic and normal inspection Eye Eye exam: Present normal appearance ENT ENT exam: Present mucous membranes moist, normal exam and normal external ear exam Neck Neck exam: Present normal inspection Respiratory Respiratory exam: Present normal respiratory exam Cardiovascular Cardiovascular exam: Present normal rate and rhythm GI/Abdominal GI/Abdominal exam: Present normal bowel sounds Extremities Exam Extremities exam: Present full ROM; Absent normal inspection Additional comments: 1 inch stage 3 ulcer of the left foot plantar aspect between the base of 1st and 2nd toes, and surrounding erythema spreading to the entire half of the anterior foot, covered by wound dressing. Back Exam Back exam: Present normal inspection Neurological Exam Neurological exam: Present alert and oriented X3 Skin Skin exam: Present warm; Absent intact Additional comments: 1 inch stage 3 ulcer of the left foot plantar aspect between the base of 1st and 2nd toes, and surrounding erythema spreading to the entire half of the anterior foot, covered by wound dressing. OBJ DATA Labs CBC & Chem 7: 06/11/22 05:20 06/11/22 05:20 Labs: Abnormal Lab Results 06/11/22 06/11/22 06/10/22 05:20 05:20 05:34 RBC 3.75 L Hgb 10.5 L Hct 33.1 L Plt Count 102 L MPV 8.5 L Immature Gran % (Auto) 1.0 H Immature Gran # 0.09 H ESR BUN 38 H 43 H Creatinine 2.6 H 2.6 H Glucose 119 H 118 H Hemoglobin A1c Albumin 2.9 L Albumin/Globulin Ratio 0.8 L 06/10/22 06/09/22 06/08/22 05:34 04:59 14:55 RBC 3.79 L 4.07 L Hgb 10.7 L 11.4 L Hct 33.2 L 35.2 L Plt Count 113 L 116 L MPV 8.5 L 8.0 L Immature Gran % (Auto) 0.9 H 1.0 H Immature Gran # 0.08 H 0.09 H ESR 90 H BUN Creatinine Glucose Hemoglobin A1c Albumin Albumin/Globulin Ratio 06/08/22 14:50 RBC Hgb Hct Plt Count MPV Immature Gran % (Auto) Immature Gran # ESR BUN Creatinine Glucose Hemoglobin A1c 7.8 H Albumin Albumin/Globulin Ratio Meds: Medications Acetaminophen (Acetaminophen 325 Mg Tablet) 650 mg PO Q6HP PRN; Protocol PRN Reason: Per Pain Protocol/Fever > 101 Last Admin: 06/08/22 20:30 Dose: 650 mg Hydrocodone Bitart/Acetaminophen (Hydrocodone/Apap 10/325mg Tablet) 1 tab PO 5XD PRN; Protocol PRN Reason: Pain Last Admin: 06/11/22 13:57 Dose: 1 tab Albuterol/Ipratropium (Ipratropium/Albuterol 3 Ml Ampul.Neb) 3 ml NEB Q4HRT PRN PRN Reason: Wheezing Allopurinol (Allopurinol 100 Mg Tablet) 100 mg PO QDAY [facility] Last Admin: 06/11/22 09:21 Dose: 100 mg Amlodipine Besylate (Amlodipine 10 Mg Tablet) 10 mg PO [facility] Last Admin: 06/10/22 21:26 Dose: 10 mg Aspirin (Aspirin 81 Mg Tab.Chew) 81 mg PO DAILY [facility] Last Admin: 06/11/22 09:22 Dose: 81 mg Atorvastatin Calcium (Atorvastatin 40 Mg Tablet) 40 mg PO QHS [facility] Last Admin: 06/10/22 21:19 Dose: 40 mg Baclofen (Baclofen 10 Mg Tablet) 10 mg PO DAILY [facility] Last Admin: 06/11/22 09:21 Dose: 10 mg Baclofen (Baclofen 10 Mg Tablet) 20 mg PO HS [facility] Last Admin: 06/10/22 21:20 Dose: 20 mg Calcitriol (Calcitriol 0.25 Mcg Capsule) 0.25 mcg PO MoWeFr@[id number] [facility] Last Admin: 06/10/22 08:55 Dose: 0.25 mcg Carvedilol (Carvedilol 3.125 Mg Tablet) 3.125 mg PO BIDCC [facility] Last Admin: 06/11/22 07:23 Dose: 3.125 mg Cefepime HCl (Cefepime 1 Gm Vial) 1 gm IV Q8H [facility]; Protocol Last Admin: 06/11/22 13:57 Dose: 1 gm Clonazepam (Clonazepam 1 Mg Tablet) 1 mg PO BID PRN PRN Reason: anxiety Dextrose (Dextrose 50% 50 Ml Vial) 0 ml IV UD PRN PRN Reason: Per Sliding Scale Diagnostic Test (Pha) (Accu-Chek 1 Each Strip) 1 each FS ACHS [facility] Last Admin: 06/11/22 11:28 Dose: 1 each Docusate Sodium (Docusate Sodium 100 Mg Capsule) 100 mg PO BID [facility] Last Admin: 06/11/22 09:22 Dose: 100 mg Ferrous Sulfate (Ferrous Sulfate 325 Mg Tablet) [facility] Last Admin: 06/11/22 07:23 Dose: 325 mg Fluoxetine HCl (Fluoxetine Hcl 20 Mg Capsule) 80 mg PO QDAY [facility] Last Admin: 06/11/22 09:22 Dose: 80 mg Folic Acid (Folic Acid 1 Mg Tablet) 1 mg PO QDAY [facility] Last Admin: 06/11/22 09:22 Dose: 1 mg Gabapentin (Gabapentin 400 Mg Capsule) 400 mg PO DAILY [facility] Last Admin: 06/11/22 09:22 Dose: 400 mg Gabapentin (Gabapentin 400 Mg Capsule) 800 mg PO HS [facility] Last Admin: 06/10/22 21:19 Dose: 800 mg Glucose (Dextrose 31 Gm Oral.Susp) 15 gm PO PRN PRN PRN Reason: Hypoglycemia Heparin Sodium (Porcine) (Heparin 5,000 Unit/Ml Vial) 5,000 unit SQ Q12 [facility] Last Admin: 06/11/22 09:23 Dose: 5,000 unit Gentamicin Sulfate 40 mg/Clindamycin Phosphate 300 mg/Sodium Chloride 503 mls @ 0 mls/hr IRR Q24H [facility] Last Admin: 06/11/22 09:23 Dose: 60 mls/hr Insulin Glargine (Insulin Glargine, Human 1 Unit/0.01 Ml) 40 unit SQ DAILY [facility] Last Admin: 06/11/22 09:22 Dose: 40 units Insulin Human Lispro (Insulin Lispro 1 Unit/0.01 Ml Unit) 0 unit SQ ACHS [facility]; Protocol Last Admin: 06/11/22 11:31 Dose: Not Given Insulin Human Lispro (Insulin Lispro 1 Unit/0.01 Ml Unit) 6 unit SQ QACLUNCH [facility] Lactobacillus Rhamnosus (Lactobacillus 1 Capsule) 1 cap PO BID [facility] Last Admin: 06/11/22 09:22 Dose: 1 cap Losartan Potassium (Losartan 50 Mg Tablet) 50 mg PO [facility] Last Admin: 06/10/22 21:21 Dose: 50 mg Morphine Sulfate (Morphine 4 Mg/Ml Vial) 4 mg IV Q4HP PRN; Protocol PRN Reason: Per Pain Protocol Omeprazole (Omeprazole 20 Mg Capsule) 20 mg PO HS [facility] Last Admin: 06/10/22 21:19 Dose: 20 mg Ondansetron HCl (Ondansetron 4 Mg/2 Ml Vial) 4 mg IV Q6HP PRN PRN Reason: Nausea And Vomiting Last Admin: 06/11/22 06:38 Dose: 4 mg Senna (Sennosides 1 Tablet) 2 tab PO HS [facility] Last Admin: 06/10/22 21:20 Dose: 2 tab Sodium Chloride (0.9 % Sodium Chloride 10 Ml Syringe) 10 ml IV Q8 [facility] Last Admin: 06/11/22 14:49 Dose: 10 ml Tamsulosin HCl (Tamsulosin 0.4 Mg Capsule) 0.4 mg PO HS [facility] Last Admin: 06/10/22 21:19 Dose: 0.4 mg Travoprost (Travoprost Ophth Drops Bottle 2.5ml) 1 gtt OU QPM [facility] Last Admin: 06/10/22 21:25 Dose: 1 gtt Trazodone HCl (Trazodone Hcl 50 Mg Tablet) 25 mg PO HSP PRN PRN Reason: Insomnia Vitamin D (Vitamin D3 125 Mcg Tablet) 125 mcg PO DAILY [facility] Last Admin: 06/11/22 09:22 Dose: 125 mcg A/P Assessment and plan (1) Hyperlipidemia: Status: Chronic Comment: 02/19/2021 stable, but triglycerides deteriorated, continue atorvastatin 40, discussed ways to improve HDL, follow-up 3 months 02/15/2022 triglycerides elevated, continue atorvastatin 40, recheck in 3 months and then follow-up with me 06/01/22 stable continue atorvastatin, labs in July and then follow-up with me (2) Diabetic foot ulcer associated with type 2 diabetes mellitus, with fat layer exposed: Status: Acute (3) Type 2 diabetes mellitus with diabetic nephropathy: Status: Acute Comment: Followed by nephrology (4) Morbid (severe) obesity due to excess calories: Status: Acute Comment: 03/23/2022 refer to pulmonology for sleep study (5) Type 2 DM with CKD stage 4 and hypertension: Status: Chronic Comment: Followed by nephrology (6) Anemia in stage 4 chronic kidney disease: Status: Chronic (7) Stage 2 acute kidney injury: Status: Acute Narrative A/P Narrative: Assessment and Plans: 1. Left diabetic foot with ulcer in the plantar aspect of the foot between bases of 1st and 2nd toes: Inpatient med surg Consult Dr. Smith for surgical management, recs. appreciated Left foot XR only showing soft tissue swelling without evidence of bony involvement SCDs Serial lactic acid 0.7 Procalcitonin 0.34 ESR 90 and CRP 5.4 cbc w/ auto diff in the morning to trend WBC MRSA screening negative, d/c Vancomycin Blood culture: no growth to date Wound culture: no growth to date Initial wound culture collected from clinic: pending Cefepime Gentamicin Tylenol PRN fever/mild pain [place] PRN moderate pain Morphine IV PRN severe pain Physical therapy evaluation and treatment HgA1c 7.8 Continue Glargine 40 unit AM, d/c insulin Lantus 20 unit HS to avoid hypoglycemia episode Lispro 6 unit At lunch or dinner time plus SSI AC HS Accu Check AC HS Hypoglycemia protocol Diabetic diet 2. Anemia in CKD4: cbc w/ auto diff in the morning to trend H/H 3. Stage 2 acute kidney injury with chronic kidney disease IV: Avoid nephrotoxic agents Kidney functions back to the baseline, saline lock CMP in the morning to trend kidney functions 4. Essential hypertension: Amlodipine [employer] Lasix given recent acute kidney injury Resume Losartan 5. Hyperlipidemia: Continue statin therapy 6. 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 Await deep tissue c/s from 06/08/2022 Time Spent With Patient Time: Total time spent is greater than 50% in coordination of care (as documented) at patient's floor/unit and/or counseling patient: Total time spent with greater than 50% in coordination of care (as documented) at patient's floor/unit and/or counseling patient:: 25 - 35 minutes QUALITY VTE Deep Vein Thrombosis/Pulmonary Embolism Present on Admission: No
[2022-06-11] MEDS: TAMSULOSIN 0.4 MG CAPSULE PO SCH (21:47)
[2022-06-11] MEDS: OMEPRAZOLE 20 MG CAPSULE PO SCH (21:47)
[2022-06-11] MEDS: amLODIPine 10 MG TABLET PO SCH (21:47)
[2022-06-11] MEDS: SENNOSIDES 1 TABLET PO SCH (21:48)
[2022-06-11] MEDS: ATORVASTATIN 40 MG TABLET PO SCH (21:48)
[2022-06-11] MEDS: LOSARTAN 50 MG TABLET PO SCH (21:48)
[2022-06-11] MEDS: TRAVOPROST OPHTH DROPS BOTTLE 2.5ML OU SCH (21:51)
[2022-06-12] MEDS: CEFEPIME 1 GM VIAL IV SCH (05:49)
[2022-06-12] MEDS: HYDROcodone/APAP 10/325MG TABLET PO PRN ×4 (05:59→22:23)
[2022-06-12] MEDS: 0.9 % SODIUM CHLORIDE 10 ML SYRINGE IV SCH ×3 (06:00→20:29)
[2022-06-12 07:10] LABS: Basophils # (Auto) 0.05 K/mcL (0.00-0.30); Basophils % (Auto) 0.6 % (0.0-2.0); Eosinophils # (Auto) 0.43 K/mcL (0.00-0.70); Eosinophils % (Auto) 5.1 % (0.0-7.0); Hemoglobin 11.3 g/dL (13.7-17.5); Lymphocytes # (Auto) 2.07 K/mcL (1.50-4.80); Lymphocytes % (Auto) 24.6 % (15.5-49.0); Mean Cell Volume 87.7 fL (80.0-100.0); Mean Corpuscular HGB Conc 32.3 g/dL (31.0-36.0); Mean Platelet Volume 7.9 fL (8.8-12.5); Monocytes # (Auto) 0.51 K/mcL (0.10-0.90); Monocytes % (Auto) 6.1 % (1.0-12.0); Neutrophils % (Auto) 62.3 % (38.0-78.0); Platelet Count 102 K/mcL (140-440); RBC 3.99 M/mcL (4.63-6.08); Red Cell Distribution Width 13.6 % (11.5-14.5); WBC 8.4 K/mcL (4.5-11.0)
[2022-06-12 07:12] LABS: ALT/SGPT 11 U/L (<40); AST/SGOT 15 U/L (<40); Albumin 3.7 gm/dL (3.2-5.2); Albumin/Globulin Ratio 1.1 (1.0-2.3); Alkaline Phosphatase 77 U/L (39-117); Bilirubin,Total 0.2 mg/dL (0.1-1.0); Blood Urea Nitrogen 41 mg/dL (6-20); Calcium 9.6 mg/dL (8.6-10.4); Carbon Dioxide 27 mmol/L (22-30); Chloride 103 mmol/L (96-108); Globulin 3.4 gm/dL (2.2-3.7); Glomerular Filtration Rate 29; Glucose 117 mg/dL (70-105)
[2022-06-12] MEDS: INSULIN LISPRO 1 UNIT/0.01 ML UNIT SQ SCH ×4 (07:20→20:10)
[2022-06-12] MEDS: HEPARIN 5,000 UNIT/ML VIAL SQ SCH ×2 (08:21→20:29)
[2022-06-12] MEDS: FOLIC ACID 1 MG TABLET PO SCH (08:22)
[2022-06-12] MEDS: VITAMIN D3 125 MCG TABLET PO SCH (08:22)
[2022-06-12] MEDS: INSULIN GLARGINE, HUMAN 1 UNIT/0.01 ML SQ SCH (08:22)
[2022-06-12] MEDS: LACTOBACILLUS 1 CAPSULE PO SCH ×2 (08:22→20:27)
[2022-06-12] MEDS: FERROUS SULFATE 325 MG TABLET PO SCH (08:22)
[2022-06-12] MEDS: ASPIRIN 81 MG TAB.CHEW PO SCH (08:22)
[2022-06-12] MEDS: ALLOPURINOL 100 MG TABLET PO SCH (08:22)
[2022-06-12] MEDS: DOCUSATE SODIUM 100 MG CAPSULE PO SCH ×2 (08:22→20:29)
[2022-06-12] MEDS: CARVEDILOL 3.125 MG TABLET PO SCH ×2 (08:22→17:15)
[2022-06-12] MEDS: FLUoxetine HCL 20 MG CAPSULE PO SCH (08:22)
[2022-06-12] MEDS: BACLOFEN 10 MG TABLET PO SCH ×2 (08:23→20:28)
[2022-06-12] MEDS: GABAPENTIN 400 MG CAPSULE PO SCH ×2 (08:23→20:27)
[2022-06-12] MEDS: ACETAMINOPHEN 325 MG TABLET PO PRN ×2 (08:31→23:36)
[2022-06-12] MEDS: GENTAMICIN SULFATE 40 MG, CLINDAMYCIN 300 MG in SODIUM CHLORIDE IRRIG SOLUTION 500 ML IRR SCH (09:31)
--- NOTE | 2022-06-12 12:04 | Internal Med Progress Note ---
SUBJECTIVE Subjective Patient information: Note initiated : 06/12/22 at 12:00 pm Service Date, if different from initiated Date: [] Patient: Tanvir Fontana Jr 56 y/o M admitted on 06/08/22 for blister on foot. Chief Complaint: [] Interval history: Mr. Addi Singh is a 56 year old M history of type 2 diabetes mellitus, diabetic foot ulcer of the left heel, chronic kidney disease stage IV, essential hypertensions, dyslipidemia, obesity, presenting with 5-day history of nonhealing left foot ulcer. He had a history of acute left healed ulcer. Last Monday he presented to our ED for a new ulcer between the base of his first and second left toe. He was being discharged home with oral antibiotics Augmentin and doxycycline for it. He finished 5-day course of dosed oral antibiotics and he presented to Dr. Malik clinic today for further evaluations. The ulceration/infection was deemed to be not healing despite 5-day course of oral antibiotics, so he was being told to come to the ED for reevaluations. Patient's denies any pain of his left foot. He is complaining of some general body weakness. He denies any other systemic symptoms such as change in his appetite, fever, chills, or diaphoresis. His vital sign is unremarkable. Labs significant for lack of leukocytosis with WBC 9.5. CRP 5.4. Procalcitonin 0.34. ESR pending. Lactic acid pending. Blood glucose level 297. Serum creatinine level 3.4 with baseline 2.6. Admission request was called for diabetic foot infections. 06/09: Afebrile overnight. Left foot x-ray did not show any bony involvement; it only shows soft tissue swelling consistent with diabetic ulcer. Blood culture and wound culture no growth to date. MRSA screening negative. Fasting glucose 161 t his morning. Patient denies any left foot pain. He denies any subjective fever, chills, or diaphoresis. Continue empiric antibiotics with Cefepime and Gentamicin. d/c Vancomycin due to negative MRSA screening. Continue daily wound care as per Dr. Malik. Continue basal bolus insulin therapy. 06/10: Afebrile overnight. Blood culture and wound culture no growth to date. Serum creatinine level 2.6 this morning, back to the baseline. Hypoglycemia episode overnight earlier this morning also was in the 70s. Patient denies any left foot pain. He denies any subjective fever, chills, or diaphoresis. We will saline lock the patient's. We will decreased the Lantus dosing to the followin unit AM and 20 unit HS to avoid hypoglycemia episode. Continue empiric antibiotics with Cefepime and Gentamicin. Continue daily wound care as per Dr. Malik. Physical therapy evaluation and treatment. 06/11: Another episode of near hypoglycemic episode with blood sugar of 78 early this morning, and patient was symptomatic for that with whole body shaking, as well as diaphoresis. Patient has been afebrile overnight. Blood culture and wound culture no growth to date. Also waiting for initial wound culture collected from the clinic. We will continue insulin Lantus to 40 units a.m. while discontinuing any nighttime insulin Lantus to avoid overnight hypoglycemic episode. Continue emp iric antibiotics with Cefepime and Gentamicin while waiting for wound culture results collected from clinic. Continue daily wound care as per Dr. Malik. Physical therapy evaluation and treatment. Tentative discharge date: Monday06/13/22. 06/12: Fasting blood glucose 123 this morning. Patient has been afebrile overnight. Blood culture and wound culture no growth to date. Also waiting for initial wound culture collected from the clinic. Patient denies any left foot pain. Continue Insulin Lantus 40 unit AM and medium dose Insulin Lispro SSI AC HS for glycemic control. Continue empiric antibiotics with Cefepime and Gentamicin while waiting for wound culture results collected from clinic. Continue daily wound care as per Dr. Malik. Physical therapy evaluation and treatment. Tentative discharge date: Monday06/13/22. Constitutional Vitals: Vital Signs Temp Pulse Resp BP Pulse Ox O2 Del Method 36.3 C 60 18 167/81 97 06/12/22 08:00 06/12/22 08:00 06/12/22 08:00 06/12/22 08:00 06/12/22 08:00 06/12/22 08:00 Period Temp Pulse Resp BP Sys/Saucedo Pulse Ox O2 Del Method O2 Flow Rate Last 24 Hr 36.3 C-36.8 C 59-61 14-20 153-188/70-108 95-98 Room Air-Room Air Intake and Output 06/12/22 06/12/22 06/12/22 03:59 11:59 19:59 Intake Total 840 1360 Balance 840 1360 Weight 129.818 kg Intake & Output: Intake & Output 06/12/22 06/12/22 06/12/22 03:59 11:59 19:59 Intake Total 840 1360 Balance 840 1360 Weight 129.818 kg Intake: Oral 840 1360 Other: Meal Stark juice Percent of Meal Consumed 75% Feeding Ability Independent # Voids 1 2 Head Head exam: Present atraumatic and normal inspection Eye Eye exam: Present normal appearance ENT ENT exam: Present mucous membranes moist, normal exam and normal external ear exam Neck Neck exam: Present normal inspection Respiratory Respiratory exam: Present normal respiratory exam Cardiovascular Cardiovascular exam: Present normal rate and rhythm GI/Abdominal GI/Abdominal exam: Present normal bowel sounds Extremities Exam Extremities exam: Absent normal inspection Additional comments: 1 inch stage 3 ulcer of the left foot plantar aspect between the base of 1st and 2nd toes Back Exam Back exam: Present normal inspection Neurological Exam Neurological exam: Present alert and oriented X3 Skin Skin exam: Present warm; Absent intact Additional comments: 1 inch stage 3 ulcer of the left foot plantar aspect between the base of 1st and 2nd toes OBJ DATA Labs CBC & Chem 7: 06/12/22 05:49 06/12/22 05:49 Labs: Abnormal Lab Results 06/12/22 06/12/22 06/11/22 05:49 05:49 05:20 RBC 3.99 L Hgb 11.3 L Hct 35.0 L Plt Count 102 L MPV 7.9 L Immature Gran % (Auto) 1.3 H Immature Gran # 0.11 H BUN 41 H 38 H Creatinine 2.4 H 2.6 H Glucose 117 H 119 H Albumin 2.9 L Albumin/Globulin Ratio 0.8 L 06/11/22 06/10/22 06/10/22 05:20 05:34 05:34 RBC 3.75 L 3.79 L Hgb 10.5 L 10.7 L Hct 33.1 L 33.2 L Plt Count 102 L 113 L MPV 8.5 L 8.5 L Immature Gran % (Auto) 1.0 H 0.9 H Immature Gran # 0.09 H 0.08 H BUN 43 H Creatinine 2.6 H Glucose 118 H Albumin Albumin/Globulin Ratio Meds: Medications Acetaminophen (Acetaminophen 325 Mg Tablet) 650 mg PO Q6HP PRN; Protocol PRN Reason: Per Pain Protocol/Fever > 101 Last Admin: 06/12/22 08:31 Dose: 650 mg Hydrocodone Bitart/Acetaminophen (Hydrocodone/Apap 10/325mg Tablet) 1 tab PO 5XD PRN; Protocol PRN Reason: Pain Last Admin: 06/12/22 09:56 Dose: 1 tab Albuterol/Ipratropium (Ipratropium/Albuterol 3 Ml Ampul.Neb) 3 ml NEB Q4HRT PRN PRN Reason: Wheezing Allopurinol (Allopurinol 100 Mg Tablet) 100 mg PO QDAY [facility] Last Admin: 06/12/22 08:22 Dose: 100 mg Amlodipine Besylate (Amlodipine 10 Mg Tablet) 10 mg PO HS [facility] Last Admin: 06/11/22 21:47 Dose: 10 mg Aspirin (Aspirin 81 Mg Tab.Chew) 81 mg PO DAILY [facility] Last Admin: 06/12/22 08:22 Dose: 81 mg Atorvastatin Calcium (Atorvastatin 40 Mg Tablet) 40 mg PO QHS [facility] Last Admin: 06/11/22 21:48 Dose: 40 mg Baclofen (Baclofen 10 Mg Tablet) 10 mg PO DAILY [facility] Last Admin: 06/12/22 08:23 Dose: 10 mg Baclofen (Baclofen 10 Mg Tablet) 20 mg PO HS [facility] Last Admin: 06/11/22 21:48 Dose: 20 mg Calcitriol (Calcitriol 0.25 Mcg Capsule) 0.25 mcg PO MoWeFr@0900 [facility] Last Admin: 06/10/22 08:55 Dose: 0.25 mcg Carvedilol (Carvedilol 3.125 Mg Tablet) 3.125 mg PO BIDCC [facility] Last Admin: 06/12/22 08:22 Dose: 3.125 mg Cefepime HCl (Cefepime 1 Gm Vial) 1 gm IV Q8H [facility]; Protocol Last Admin: 06/12/22 05:49 Dose: 1 gm Clonazepam (Clonazepam 1 Mg Tablet) 1 mg PO BID PRN PRN Reason: anxiety Dextrose (Dextrose 50% 50 Ml Vial) 0 ml IV UD PRN PRN Reason: Per Sliding Scale Diagnostic Test (Pha) (Accu-Chek 1 Each Strip) 1 each FS ACHS [facility] Last Admin: 06/12/22 11:30 Dose: 1 each Docusate Sodium (Docusate Sodium 100 Mg Capsule) 100 mg PO BID [facility] Last Admin: 06/12/22 08:22 Dose: 100 mg Ferrous Sulfate (Ferrous Sulfate 325 Mg Tablet) 325 mg PO QAMCC [facility] Last Admin: 06/12/22 08:22 Dose: 325 mg Fluoxetine HCl (Fluoxetine Hcl 20 Mg Capsule) 80 mg PO QDAY [facility] Last Admin: 06/12/22 08:22 Dose: 80 mg Folic Acid (Folic Acid 1 Mg Tablet) 1 mg PO QDAY [facility] Last Admin: 06/12/22 08:22 Dose: 1 mg Gabapentin (Gabapentin 400 Mg Capsule) 400 mg PO DAILY [facility] Last Admin: 06/12/22 08:23 Dose: 400 mg Gabapentin (Gabapentin 400 Mg Capsule) 800 mg PO HS [facility] Last Admin: 06/11/22 21:48 Dose: 800 mg Glucose (Dextrose 31 Gm Oral.Susp) 15 gm PO PRN PRN PRN Reason: Hypoglycemia Heparin Sodium (Porcine) (Heparin 5,000 Unit/Ml Vial) 5,000 unit SQ Q12 [facility] Last Admin: 06/12/22 08:21 Dose: 5,000 unit Gentamicin Sulfate 40 mg/Clindamycin Phosphate 300 mg/Sodium Chloride 503 mls @ 0 mls/hr IRR Q24H [facility] Last Admin: 06/12/22 09:31 Dose: 60 mls/hr Insulin Glargine (Insulin Glargine, Human 1 Unit/0.01 Ml) 40 unit SQ DAILY [facility] Last Admin: 06/12/22 08:22 Dose: 40 units Insulin Human Lispro (Insulin Lispro 1 Unit/0.01 Ml Unit) 0 unit SQ ACHS [facility]; Protocol Last Admin: 06/12/22 11:53 Dose: 2 unit Insulin Human Lispro (Insulin Lispro 1 Unit/0.01 Ml Unit) 6 unit SQ QACLUNCH [facility] Lactobacillus Rhamnosus (Lactobacillus 1 Capsule) 1 cap PO BID [facility] Last Admin: 06/12/22 08:22 Dose: 1 cap Losartan Potassium (Losartan 50 Mg Tablet) 50 mg PO [facility] Last Admin: 06/11/22 21:48 Dose: 50 mg Morphine Sulfate (Morphine 4 Mg/Ml Vial) 4 mg IV Q4HP PRN; Protocol PRN Reason: Per Pain Protocol Omeprazole (Omeprazole 20 Mg Capsule) 20 mg PO [facility] Last Admin: 06/11/22 21:47 Dose: 20 mg Ondansetron HCl (Ondansetron 4 Mg/2 Ml Vial) 4 mg IV Q6HP PRN PRN Reason: Nausea And Vomiting Last Admin: 06/11/22 06:38 Dose: 4 mg Senna (Sennosides 1 Tablet) 2 tab PO HS [facility] Last Admin: 06/11/22 21:48 Dose: 2 tab Sodium Chloride (0.9 % Sodium Chloride 10 Ml Syringe) 10 ml IV Q8 [facility] Last Admin: 06/12/22 06:00 Dose: 10 ml Tamsulosin HCl (Tamsulosin 0.4 Mg Capsule) 0.4 mg PO HS [facility] Last Admin: 06/11/22 21:47 Dose: 0.4 mg Travoprost (Travoprost Ophth Drops Bottle 2.5ml) 1 gtt OU QPM [facility] Last Admin: 06/11/22 21:51 Dose: 1 gtt Trazodone HCl (Trazodone Hcl 50 Mg Tablet) 25 mg PO HSP PRN PRN Reason: Insomnia Vitamin D (Vitamin D3 125 Mcg Tablet) 125 mcg PO DAILY [facility] Last Admin: 06/12/22 08:22 Dose: 125 mcg A/P Assessment and plan (1) Hyperlipidemia: Status: Chronic Comment: 02/19/2021 stable, but triglycerides deteriorated, continue atorvastatin 40, discussed ways to improve HDL, follow-up 3 months 02/15/2022 triglycerides elevated, continue atorvastatin 40, recheck in 3 months and then follow-up with me 06/01/22 stable continue atorvastatin, labs in July and then follow-up with me (2) Diabetic foot ulcer associated with type 2 diabetes mellitus, with fat layer exposed: Status: Acute (3) Type 2 diabetes mellitus with diabetic nephropathy: Status: Acute Comment: Followed by nephrology (4) Morbid (severe) obesity due to excess calories: Status: Acute Comment: 03/23/2022 refer to pulmonology for sleep study (5) Type 2 DM with CKD stage 4 and hypertension: Status: Chronic Comment: Followed by nephrology (6) Anemia in stage 4 chronic kidney disease: Status: Chronic (7) Stage 2 acute kidney injury: Status: Acute Narrative A/P Narrative: Assessment and Plans: 1. Left diabetic foot with ulcer in the plantar aspect of the foot between bases of 1st and 2nd toes: Inpatient med surg Consult Dr. Smith for surgical management, recs. appreciated Left foot XR only showing soft tissue swelling without evidence of bony involvement SCDs Serial lactic acid 0.7 Procalcitonin 0.34 ESR 90 and CRP 5.4 cbc w/ auto diff in the morning to trend WBC MRSA screening negative, d/c Vancomycin Blood culture: no growth to date Wound culture: no growth to date Initial wound culture collected from clinic: pending d/c Cefepime d/c Gentamicin Start Rocephin 2gm IV daily Tylenol PRN fever/mild pain Stella PRN moderate pain Morphine IV PRN severe pain Physical therapy evaluation and treatment HgA1c 7.8 Continue Glargine 40 unit AM Lispro 6 unit At lunch or dinner time plus SSI AC HS Accu Check AC HS Hypoglycemia protocol Diabetic diet 2. Anemia in CKD4: cbc w/ auto diff in the morning to trend H/H 3. Stage 2 acute kidney injury with chronic kidney disease IV: Avoid nephrotoxic agents Kidney functions back to the baseline, saline lock CMP in the morning to trend kidney functions 4. Essential hypertension: Amlodipine Coreg Holding Lasix given recent acute kidney injury Resume Losartan 5. Hyperlipidemia: Continue statin therapy 6. Morbid obesity: [employer] patient on life style modifications including regular exercise and healthy diet in order to lose weight GI ppx: Prilosec DVT ppx: Heparin Code status: Full Prognosis: Stable Disposition: inpatient med surg; tentative discharge date Monday06/13/22 Plan of Treatment: Plan: Local wound care, IV antibiotics. Await deep tissue c/s from 06/08/2022 Time Spent With Patient Time: Total time spent is greater than 50% in coordination of care (as documented) at patient's floor/unit and/or counseling patient: Total time spent with greater than 50% in coordination of care (as documented) at patient's floor/unit and/or counseling patient:: 25 - 35 minutes QUALITY VTE Deep Vein Thrombosis/Pulmonary Embolism Present on Admission: No
--- NOTE | 2022-06-12 12:10 | General Surgery Progress Note ---
SUBJECTIVE Subjective Patient information: Note initiated : 06/12/22 at 12:01 pm Service Date, if different from initiated Date: [] Patient: Tanvir Fontana Jr 56 y/o M admitted on 06/08/22 for blister on foot. Chief Complaint: [] Additional PMFSH (Level 3 Only): Patient seen with Lalitha VERDIN and Dr. IRVING, Hospitalist Physician. Doing well from wound care point of view. Constitutional Vitals: Vital Signs Temp Pulse Resp BP Pulse Ox O2 Del Method 97.3 F 60 18 167/81 97 06/12/22 08:00 06/12/22 08:00 06/12/22 08:00 06/12/22 08:00 06/12/22 08:00 06/12/22 08:00 Period Temp Pulse Resp BP Sys/Saucedo Pulse Ox O2 Del Method O2 Flow Rate Last 24 Hr 97.3 F-98.3 F 59-61 14-20 153-188/70-108 95-98 Room Air-Room Air Intake and Output 06/12/22 06/12/22 06/12/22 03:59 11:59 19:59 Intake Total 840 1360 Balance 840 1360 Weight 286 lb 3.2 oz Intake & Output: Intake & Output 06/12/22 06/12/22 06/12/22 03:59 11:59 19:59 Intake Total 840 1360 Balance 840 1360 Weight 286 lb 3.2 oz Intake: Oral 840 1360 Other: Meal Cowley juice Percent of Meal Consumed 75% Feeding Ability Independent # Voids 1 2 Exam: Afebrile. VSS. No changes MERCY. LEFT foot anterior mid plantar wound site. IMPROVING. Demarcating slough debrided at bedside. Lab results reviewed. Tissue cultures sent from clinic are awaited. Continues to be on daily local wound care Empiric IV antibiotcs. Glycemic control improving.Meds adjusted. A/P Narrative A/P Narrative: Assessment: Progressing well. Responding to local wound care and IV antibiotics. Final tissue cultures before demarcated are NA thus far. Plan of Treatment: Plan: Local wound care, IV antibiotics. Await deep tissue c/s from 06/08/2022 Continue with daily once a day local wound care. Consider d/c home on once a day antibiotics. TO be seen at wound clinic for f/u and VAC plcaement. Time Spent With Patient Time: Total time spent is greater than 50% in coordination of care (as documented) at patient's floor/unit and/or counseling patient:
--- NOTE | 2022-06-12 12:13 | General Surgery Procedure Note ---
Date of procedure: Note initiated : 06/12/22 at 12:10 pm Service Date, if different from initiated Date: [] Pre-op diagnosis: Stage 4 DFU LEFT plantar forefoot Post-op diagnosis: same Procedure: Selective debridement at bedside. Findings: Demarcating yellow slough at wound base, Surgeon: Roderick Malik Estimated blood loss: 2 Pathology: none sent Description of procedure: Selective debridement as above. Wound dimensions 4 x 2.5 x 1.5 CM Condition: stable Disposition: no change
[2022-06-12] MEDS: cefTRIAXone 2 GM in DEXTROSE 5% IN WATER 50 ML IV SCH (14:05)
[2022-06-12] MEDS ORDERED: SIMETHICONE 80 MG TAB.CHEW CHEWED PRN (14:11)
[2022-06-12] MEDS: OMEPRAZOLE 20 MG CAPSULE PO SCH (20:27)
[2022-06-12] MEDS: SENNOSIDES 1 TABLET PO SCH (20:27)
[2022-06-12] MEDS: TAMSULOSIN 0.4 MG CAPSULE PO SCH (20:28)
[2022-06-12] MEDS: ATORVASTATIN 40 MG TABLET PO SCH (20:28)
[2022-06-12] MEDS: TRAVOPROST OPHTH DROPS BOTTLE 2.5ML OU SCH (20:30)
[2022-06-12] MEDS: LOSARTAN 50 MG TABLET PO SCH (20:31)
[2022-06-12] MEDS: amLODIPine 10 MG TABLET PO SCH (20:31)
[2022-06-13] MEDS: HYDROcodone/APAP 10/325MG TABLET PO PRN (05:47)
[2022-06-13] MEDS: 0.9 % SODIUM CHLORIDE 10 ML SYRINGE IV SCH (05:48)
[2022-06-13 07:03] LABS: Basophils # (Auto) 0.05 K/mcL (0.00-0.30); Basophils % (Auto) 0.7 % (0.0-2.0); Eosinophils # (Auto) 0.37 K/mcL (0.00-0.70); Eosinophils % (Auto) 5.1 % (0.0-7.0); Hematocrit 34.3 % (40.1-51.0); Hemoglobin 11.1 g/dL (13.7-17.5); Lymphocytes % (Auto) 23.6 % (15.5-49.0); Mean Cell Volume 86.8 fL (80.0-100.0); Mean Corpuscular HGB Conc 32.4 g/dL (31.0-36.0); Mean Platelet Volume 8.4 fL (8.8-12.5); Monocytes # (Auto) 0.41 K/mcL (0.10-0.90); Monocytes % (Auto) 5.7 % (1.0-12.0); Neutrophils % (Auto) 64.1 % (38.0-78.0); Platelet Count 100 K/mcL (140-440); RBC 3.95 M/mcL (4.63-6.08); Red Cell Distribution Width 13.6 % (11.5-14.5); WBC 7.2 K/mcL (4.5-11.0)
[2022-06-13 07:31] LABS: ALT/SGPT 13 U/L (<40); AST/SGOT 17 U/L (<40); Albumin 3.7 gm/dL (3.2-5.2); Albumin/Globulin Ratio 1.2 (1.0-2.3); Alkaline Phosphatase 71 U/L (39-117); Bilirubin,Total 0.2 mg/dL (0.1-1.0); Blood Urea Nitrogen 42 mg/dL (6-20); Calcium 9.4 mg/dL (8.6-10.4); Carbon Dioxide 27 mmol/L (22-30); Chloride 103 mmol/L (96-108); Globulin 3.2 gm/dL (2.2-3.7); Glomerular Filtration Rate 30; Glucose 93 mg/dL (70-105)
--- NOTE | 2022-06-13 08:01 | Operative Note ---
DATE OF OPERATION: 06/12/2022 DATE OF PROCEDURE: 06/12/2022 PREOPERATIVE DIAGNOSES: 1. Diabetic foot ulcer, stage 4 mid anterior plantar right foot. 2. Peripheral neuropathy. POSTOPERATIVE DIAGNOSES: 1. Diabetic foot ulcer, stage 4 mid anterior plantar right foot. 2. Peripheral neuropathy. INTRAOPERATIVE FINDINGS: Significant improvement since admission and after initial debridement under 1 week ago. Wound bed is now demarcating yellow slough. Wound edges are clean and pink with capillary backbleeding. The periwound callus has demarcated. INDICATIONS: This patient was admitted to the Emergency Room via emergency with a complicated skin and skin structure infection in a diabetic plantar foot with cellulitis. He was treated aggressively with IV antibiotics and local wound care. So far, the wound cultures have been negative. These were obtained before starting on IV antibiotics. Nonetheless, he is responding to empiric IV antibiotics and local wound care. Leukocytosis has resolved. Platelets are trending down, and his serum creatinine also is trending down. Glycemic control is improving with adjustment of medication. PROCEDURE NOTE IN DETAIL: I carried out this procedure at the bedside with the help of nursing staff. The wound was cleaned, prepped, and appropriately exposed. We used pickup and scissors to sharply excise the slough at the wound base. The periwound marginal callus was taken down with pickup and scissors. Packing consisted of SilvaSorb ointment, Adaptic, Kerlix gauze bandage and Coban, respectively. PLAN: The patient will be reassessed tomorrow. From the wound care point of view, he will be discharged home with IV antibiotics once a day and local wound care in the hospital when he comes for IV antibiotics. When he is seen in the clinic we will consider starting him on a wound VAC. VD:lyn Job ID: [id number] Doc ID: [id number] Roderick Malik MD
[2022-06-13] MEDS: LACTOBACILLUS 1 CAPSULE PO SCH (09:24)
[2022-06-13] MEDS: FERROUS SULFATE 325 MG TABLET PO SCH (09:24)
[2022-06-13] MEDS: DOCUSATE SODIUM 100 MG CAPSULE PO SCH (09:24)
[2022-06-13] MEDS: ALLOPURINOL 100 MG TABLET PO SCH (09:24)
[2022-06-13] MEDS: GABAPENTIN 400 MG CAPSULE PO SCH (09:25)
[2022-06-13] MEDS: VITAMIN D3 125 MCG TABLET PO SCH (09:25)
[2022-06-13] MEDS: FLUoxetine HCL 20 MG CAPSULE PO SCH (09:25)
[2022-06-13] MEDS: BACLOFEN 10 MG TABLET PO SCH (09:25)
[2022-06-13] MEDS: CALCITRIOL 0.25 MCG CAPSULE PO SCH (09:25)
[2022-06-13] MEDS: FOLIC ACID 1 MG TABLET PO SCH (09:25)
[2022-06-13] MEDS: ASPIRIN 81 MG TAB.CHEW PO SCH (09:26)
[2022-06-13] MEDS: CARVEDILOL 3.125 MG TABLET PO SCH (09:26)
[2022-06-13] MEDS: HEPARIN 5,000 UNIT/ML VIAL SQ SCH (09:28)
[2022-06-13] MEDS: INSULIN GLARGINE, HUMAN 1 UNIT/0.01 ML SQ SCH (09:29)
[2022-06-13] MEDS: cefTRIAXone 2 GM in DEXTROSE 5% IN WATER 50 ML IV SCH (10:27)
--- NOTE | 2022-06-13 10:48 | General Surgery Progress Note ---
SUBJECTIVE Subjective Patient information: Note initiated : 06/13/22 at 10:31 am Service Date, if different from initiated Date: [] Patient: Tanvir Fontana Jr 56 y/o M admitted on 06/08/22 for blister on foot. Chief Complaint: [] Additional PMFSH (Level 3 Only): Patient seen with Juju VERDIN. Doing well. Keen to go home. Constitutional Vitals: Vital Signs Temp Pulse Resp BP Pulse Ox O2 Del Method 97.8 F 77 20 156/86 96 06/13/22 08:00 06/13/22 08:00 06/13/22 08:00 06/13/22 08:00 06/13/22 08:00 06/13/22 08:00 Period Temp Pulse Resp BP Sys/Saucedo Pulse Ox O2 Del Method O2 Flow Rate Last 24 Hr 97.0 F-97.8 F 54-77 14-20 154-182/73-86 96-98 Room Air-Room Air Intake and Output 06/12/22 06/13/22 06/13/22 19:59 03:59 11:59 Intake Total 2230 420 450 Balance 2230 420 450 Weight 287 lb 9 oz Intake & Output: Intake & Output 06/12/22 06/13/22 06/13/22 19:59 03:59 11:59 Intake Total 2230 420 450 Balance 2230 420 450 Weight 287 lb 9 oz Intake: IV 50 Rocephin 2 gm In Dextrose 5% in 50 Water 50 ml @ 100 mls/hr IV Q24H [facility] Rx#:[id number] Oral 2180 420 450 Other: Meal Dinner Breakfast Percent of Meal Consumed 100% 100% Feeding Ability Independent Independent # Voids 1 2 2 Exam: AVSS, No changes MERCY. Wound tissue c/s. Staph aureus ROJAS SENSITIVE. Wound is improving. Stage 4 DFU. Depth to synovial tissue. Dimension 4 x 2 x 1CM. Demarcating slough. CBC, CMP improving. NO interval changes. A/P Narrative A/P Narrative: Assessment: Satisfactory progress. NEEDS Evaluation by Physical Therapy. Ambulate with TOES offloading Darco shoe Front wheel walker. Local wound care: Clean with Vashe. SILVASORB/ 4x4 gauze over wound and in between toes.x2 a week. Kerlix bandage, KATHERINE. AVOID soap / water getting to wound. Keep dressing clean and dry until seen @ f/u. PO Antibiotics. Bactrim DS BID X 20 days. Plan of Treatment: Plan: Patient may have MIST treatment and IV antibiotics today OK to go home today after lunch and arrangements completed. Please call and confirm f/u appointment with wound clinic this week. Plan reviewed with Bernarda VERDIN I/C and Dr. Henry. Hospitalist. Time Spent With Patient Time: Total time spent is greater than 50% in coordination of care (as documented) at patient's floor/unit and/or counseling patient:
--- NOTE | 2022-06-13 10:49 | Discharge Summary ---
Discharge Provider Provider IMPORTANT FOLLOW-UP INFORMATION FOR PCP: Patient information: Note initiated : 06/13/22 at 10:43 am Service Date, if different from initiated Date: [] Patient: Tanvir Fontana Jr 56 y/o M admitted on 06/08/22 for blister on foot. Chief Complaint: [] Date of admission: 06/08/22 14:14 Discharge date: 06/13/22 Primary care physician: GABBI Faulkner Attending physician on admission: Zion Henry Consults: 06/08/22 Consult to Physician [CONS] Stat Comment: Consulting Provider: Zion Henry Reason For Exam: Physician to Consult 06/08/22 14:36 Consult to Physician [CONS] Routine Comment: Consulting Provider: Roderick Malik Reason For Exam: Physician to Consult Attending physician on discharge: Zion Villalta [place] COURSE Hospital Course Hospital course: Mr. Addi Singh is a 56 year old M history of type 2 diabetes mellitus, diabetic foot ulcer of the left heel, chronic kidney disease stage IV, essential hypertensions, dyslipidemia, obesity, presenting with 5-day history of nonhealing left foot ulcer. He had a history of acute left healed ulcer. Last Rex he presented to our ED for a new ulcer between the base of his first and second left toe. He was being discharged home with oral antibiotics Augmentin and doxycycline for it. He finished 5-day course of dosed oral antibiotics and he presented to Dr. Malik clinic today for further evaluations. The ulceration/infection was deemed to be not healing despite 5-day course of oral antibiotics, so he was being told to come to the ED for reevaluations. Patient's denies any pain of his left foot. He is complaining of some general body weakness. He denies any other systemic symptoms such as change in his appetite, fever, chills, or diaphoresis. His vital sign is unremarkable. Labs significant for lack of leukocytosis with WBC 9.5. CRP 5.4. Procalcitonin 0.34. ESR pending. Lactic acid pending. Blood glucose level 297. Serum creatinine level 3.4 with baseline 2.6. Admission request was called for diabetic foot infections. 06/09: Afebrile overnight. Left foot x-ray did not show any bony involvement; it only shows soft tissue swelling consistent with diabetic ulcer. Blood culture and wound culture no growth to date. MRSA screening negative. Fasting glucose 161 this morning. Patient denies any left foot pain. He denies any subjective fever, chills, or diaphoresis. Continue empiric antibiotics with Cefepime and Gentamicin. d/c Vancomycin due to negative MRSA screening. Continue daily wound care as per Dr. Malik. Continue basal bolus insulin therapy. 06/10: Afebrile overnight. Blood culture and wound culture no growth to date. Serum creatinine level 2.6 this morning, back to the baseline. Hypoglycemia episode overnight earlier this morning also was in the 70s. Patient denies any left foot pain. He denies any subjective fever, chills, or diaphoresis. We will saline lock the patient's. We will decreased the Lantus dosing to the followin unit AM and 20 unit HS to avoid hypoglycemia episode. Continue empiric antibiotics with Cefepime and Gentamicin. Continue daily wound care as per Dr. Malik. Physical therapy evaluation and treatment. 06/11: Another episode of near hypoglycemic episode with blood sugar of 78 early this morning, and patient was symptomatic for that with whole body shaking, as well as diaphoresis. Patient has been afebrile overnight. Blood culture and wound culture no growth to date. Also waiting for initial wound culture collected from the clinic. We will continue insulin Lantus to 40 units a.m. while discontinuing any nighttime insulin Lantus to avoid overnight hypoglycemic episode. Continue empiric antibiotics with Cefepime and Gentamicin while waiting for wound culture results collected from clinic. Continue daily wound care as per Dr. Malik. Physical therapy evaluation and treatment. Tentative discharge date: Monday06/13/22. 06/12: Fasting blood glucose 123 this morning. Patient has been afebrile overnight. Blood culture and wound culture no growth to date. Also waiting for initial wound culture collected from the clinic. Patient denies any left foot pain. Continue Insulin Lantus 40 unit AM and medium dose Insulin Lispro SSI AC HS for glycemic control. Continue empiric antibiotics with Cefepime and Gentamicin whil e waiting for wound culture results collected from clinic. Continue daily wound care as per Dr. Malik. Physical therapy evaluation and treatment. Tentative discharge date: Monday06/13/22. 06/13: Patient has reached clinical stability. Will discharge patient home with prescriptions including Bactrim DS sent to pharmacy and given to him, respectively. Instructed patient to follow-up with the wound clinic for continued wound care. All questions were answered prior to patient being physically discharged. Discharge diagnosis: Diabetic foot ulcer Time Spent with Patient Time attestation: Total time spent providing and/or coordinating discharge services: Time spent: Greater than 30 minutes EXAM Constitutional Vitals: Temp Pulse Resp BP Pulse Ox O2 Del Method 36.6 C 77 20 156/86 96 06/13/22 08:00 06/13/22 08:00 06/13/22 08:00 06/13/22 08:00 06/13/22 08:00 06/13/22 08:00 General appearance: cooperative and no acute distress Head Head exam: Present atraumatic and normocephalic Eye Eye exam: Present EOMI and PERRL ENT ENT exam: Present mucous membranes moist, normal exam and normal external ear exam Neck Neck exam: Present normal inspection; Absent lymphadenopathy, tenderness or thyromegaly Respiratory Respiratory exam: Absent accessory muscle use, respiratory distress or wheezes Cardiovascular Cardiovascular exam: Present normal rate and rhythm; Absent JVD GI/Abdominal GI/Abdominal exam: Present normal bowel sounds and soft; Absent organomegaly or tenderness Rectal Rectal exam: Present deferred Extremities Exam Extremities exam: Present full ROM and normal capillary refill; Absent normal inspection or tenderness Additional comments: 1 inch stage 3 ulcer of the left foot plantar aspect between the base of 1st and 2nd toes Neurological Exam Neurological exam: Present alert, CN II-XII intact and oriented X3; Absent motor sensory deficit Psychiatric Psychiatric exam: Present normal affect and normal mood; Absent anxious or depressed Skin Skin exam: Present dry; Absent intact Additional comments: 1 inch stage 3 ulcer of the left foot plantar aspect between the base of 1st and 2nd toes Discharge Data Data Completed and Pending Labs on day of discharge: Labs from last 24 hours 06/13/22 06/13/22 06/13/22 05:11 05:11 05:11 WBC 7.2 RBC 3.95 L Hgb 11.1 L Hct 34.3 L MCV 86.8 MCH 28.1 MCHC 32.4 RDW 13.6 Plt Count 100 L MPV 8.4 L Immature Gran % (Auto) 0.8 H Neut % (Auto) 64.1 Lymph % (Auto) 23.6 [place] % (Auto) 5.7 Eos % (Auto) 5.1 Baso % (Auto) 0.7 Lymph # (Auto) 1.70 [place] # (Auto) 0.41 Eos # (Auto) 0.37 Baso # (Auto) 0.05 Immature Gran # 0.06 H Absolute Neutrophils 4.62 Sodium 138 Potassium 4.2 Chloride 103 Carbon Dioxide 27 Anion Gap 8.0 BUN 42 H Creatinine 2.3 H GFR Calculation 30 Glucose 93 Calcium 9.4 Magnesium 2.3 Total Bilirubin 0.2 AST 17 ALT 13 Alkaline Phosphatase 71 Total Protein 6.9 Albumin 3.7 Globulin 3.2 Albumin/Globulin Ratio 1.2 Preliminary micro results at discharge 06/08/22 14:55 Blood Culture - Preliminary Blood 06/08/22 14:50 Blood Culture - Preliminary Blood 06/08/22 15:50 Gram Stain - Preliminary Foot - Left Discharge Plan Patient/Caregiver Discharge Instructions Activity: increase activity as tolerated Diet: Consistent Carbohydrate Prescriptions: New sulfamethoxazole-trimethoprim [Bactrim DS] 800-160 mg tablet 1 tab PO BID Qty: 20 0RF Continued cholecalciferol (vitamin D3) 125 mcg (5,000 unit) capsule 5,000 unit PO QDAY carvedilol 3.125 mg tablet 3.125 mg PO BID Qty: 180 4RF Rx Instructions: must administer with a meal/food amlodipine 10 mg tablet 10 mg PO HS Qty: 90 0RF calcitriol 0.25 mcg capsule 0.25 mcg PO 3XW Qty: 108 0RF Rx Instructions: monday/mon/monday ferrous fumarate 325 mg (106 mg iron) tablet 325 mg PO QDAY Qty: 30 0RF insulin lispro 100 unit/mL insulin pen See Rx Instructions .ROUTE .COMPLEX Qty: 15 0RF Dose Instruction: INJECT 12 UNITS UNDER THE SKIN THREE TIMES DAILY PLUS 151-175 1 UNIT, 176-200 2 UNITS, 201-225 3 UNITS, 226-250 4 UNITS MAX 66 UNITS/DAY Rx Instructions: INJECT 6 at lunch or dinner plus sliding scale and adjust insulin accord to direction and rate of arrows:200-250:1unit,251-300:2units,301-350:3units,351- 400:4units,401 and above 5 units insulin glargine 100 unit/mL solution See Rx Instructions SUB-Q BID Qty: 90 0RF Rx Instructions: 40units QAM, and 60units QPM subcut twice a day; omeprazole 20 mg capsule,delayed release(DR/EC) 20 mg PO HS Qty: 90 3RF (DME) blood sugar diagnostic Strip See Rx Instructions .ROUTE .MEDSUPPLY Qty: 100 2RF Rx Instructions: Check twice daily tamsulosin 0.4 mg capsule 0.4 mg PO HS Qty: 90 3RF furosemide 40 mg tablet 80 mg PO QDAY Qty: 180 1RF folic acid 1 mg tablet 1 mg PO QDAY Qty: 90 1RF losartan 50 mg tablet 50 mg PO HS Qty: 90 2RF allopurinol 100 mg tablet 100 mg PO QDAY Qty: 90 0RF atorvastatin 40 mg tablet 40 mg PO QHS Qty: 90 0RF gabapentin 400 mg capsule See Rx Instructions .ROUTE .COMPLEX Qty: 270 0RF Rx Instructions: one capsule by mouth q AM and two capsules by mouth q HS ; (DME) Dexcom G6 Sensor Device See Rx Instructions .Route Qty: 3 5RF Rx Instructions: As directed (DME) Dexcom G6 Transmitter Device See Rx Instructions .Route Qty: 1 5RF Rx Instructions: As directed hydrocodone-acetaminophen 10-325 mg tablet 1 tab PO .five times a day PRN (Reason: pain) Qty: 150 0RF clonazepam 1 mg tablet 1 mg PO BID PRN (Reason: anxiety) Qty: 60 2RF fluoxetine 20 mg capsule 80 mg PO QDAY 90 Days Qty: 120 0RF aspirin 81 mg tablet,delayed release (DR/EC) 81 mg PO QDAY travoprost [Travatan Z] 0.004 % drops 1 drp OPHTHALMIC QPM Rx Instructions: both eyes Glucagon (HCl) Emergency Kit 1 mg recon soln 1 mg SUB-Q Q20M PRN (Reason: blood sugar) lactobacillus combination no.9 [Adult 50 Plus Probiotic] 4 billion cell capsule 4,000 mmu cells PO QDAY Qty: 30 6RF Rx Instructions: administer with a meal (DME) Telfa See Rx Instructions .Route .MEDSUPPLY Qty: 1 0RF Rx Instructions: Change daily (DME) pen needle, diabetic [BD Ultra-Fine Short Pen Needle] 31 gauge x 5/16" needle See Rx Instructions .Route Qty: 100 12RF Rx Instructions: To be used with insulin pens as directed by pcp baclofen 10 mg tablet See Rx Instructions .ROUTE .COMPLEX Qty: 60 2RF Rx Instructions: One tablet by mouth q AM and two tablets by mouth q HS ; Probiotic Digestive Care 20 billion cell capsule 1 cell PO QHS 60 Days Qty: 60 0RF Rx Instructions: Take one capsule by mouth at bedtime, at least 2 hours after your last dose of antibiotics. Take for 60 days. Other Ambulatory Orders: Walking Shoe (ONCE) Location: None Selected Ordered By: Roderick Malik Follow Up Plan Follow up with: Lalitha Ho ARNP [Primary Care Provider] - Roderick Malik MD [Physician] - Patient Disposition: Home, Self-Care Plan of Treatment: Plan: Patient may have MIST treatment and IV antibiotics today OK to go home today after lunch and arrangements completed. Please call and confirm f/u appointment with wound clinic this week. Plan reviewed with Bernarda VERDIN I/C and Dr. Henry. Hospitalist. Prognosis: Good Rehab Potential: Good I certify that the patient requires SNF services: No Overall status at discharge: patient is progressing back to baseline Discharge Orders: Discharge Order (Routine); Ordered 06/13/22 Ordered By: Zion LAURENT VTE Deep Vein Thrombosis/Pulmonary Embolism Present on Admission: No
[2022-06-13] MEDS: INSULIN LISPRO 1 UNIT/0.01 ML UNIT SQ SCH ×2 (12:15→12:18)
--- NOTE | 2022-07-26 08:51 | Operative Note ---
DATE OF OPERATION: 06/12/2022 AMENDMENT TO OP NOTE DICTATED 06/12/[address] RODERICK HAYNES: NOTE: Any reference to Right in the original note is incorrect. The correct laterality is Left. This patient had undergone debridement of a plantar diabetic foot ulcer, stage 4, left foot. VD:katie Job ID: [id number] Doc ID: [id number] Roderick Haynse MD
== END 2022-06-13 13:45 | disposition home or self-care (01) | DRG 638 ==
LOC: ED 10:06 → MEDSUR 14:14
PROVIDERS: ADMIT Internal Medicine; ATTEND Internal Medicine

== ENCOUNTER 2025-02-24 13:04 | Inpatient (IN) ==
[2025-02-24 13:49] LABS: Basophils # (Auto) 0 K/mcL (0.00-0.30); Basophils % (Auto) 0 % (0.0-2.0); Eosinophils # (Auto) 0.06 K/mcL (0.00-0.70); Eosinophils % (Auto) 0.8 % (0.0-7.0); Hematocrit 24.9 % (40.1-51.0); Hemoglobin 7.7 g/dL (13.7-17.5); Lymphocytes # (Auto) 0.46 K/mcL (1.50-4.80); Lymphocytes % (Auto) 6.2 % (15.5-49.0); Mean Corpuscular HGB Conc 30.9 g/dL (31.0-36.0); Monocytes # (Auto) 0.90 K/mcL (0.10-0.90); Monocytes % (Auto) 12.1 % (1.0-12.0); Neutrophils % (Auto) 80.8 % (38.0-78.0); Platelet Count 119 K/mcL (140-440); RBC 2.85 M/mcL (4.63-6.08); WBC 7.4 K/mcL (4.5-11.0)
[2025-02-24 14:36] LABS: ALT/SGPT 28 U/L (<40); AST/SGOT 35 U/L (<40); Albumin 2.7 gm/dL (3.2-5.2); Albumin/Globulin Ratio 0.7 (1.0-2.3); Alkaline Phosphatase 95 U/L (39-117); Anion Gap 17.0 (8.0-16.0); Bilirubin,Total < 0.2 mg/dL (0.1-1.0); Blood Urea Nitrogen 125 mg/dL (6-20); Calcium 8.2 mg/dL (8.6-10.4); Carbon Dioxide 18 mmol/L (22-30); Chloride 87 mmol/L (96-108); Globulin 3.7 gm/dL (2.2-3.7); Glucose 725 mg/dL (70-105); Potassium 5.2 mmol/L (3.3-5.1); Sodium 122 mmol/L (133-145)
[2025-02-24] MEDS: INSULIN REGULAR, HUMAN 50 UNIT in 0.9 % SODIUM CHLORIDE 99.5 ML IV SCH ×3 (15:40→19:50)
[2025-02-24 17:28] LABS: POC Blood Urea Nitrogen > 140 (6-20); POC CO2 22.0 (22-30); POC Calcium, Ionized 1.07 (1.16-1.32); POC Glucose, Random 559 (70-105)
[2025-02-24] MEDS ORDERED: SENNOSIDES 1 TABLET PO PRN (19:01)
[2025-02-24] MEDS ORDERED: IPRATROPIUM/ALBUTEROL 3 ML AMPUL.NEB NEB PRN (19:01)
[2025-02-24] MEDS: INSULIN REGULAR, HUMAN 1 UNIT/0.01 ML UNIT ONE ×2 (19:18→19:30)
[2025-02-24] MEDS: INSULIN REGULAR, HUMAN 1 UNIT/0.01 ML UNIT IV PRN (19:18)
[2025-02-24] MEDS: DEXTROSE 5%-1/2NS 1,000 ML IV SCH (19:26)
[2025-02-24] MEDS: 0.45 % SODIUM CHLORIDE 1,000 ML IV SCH (19:26)
[2025-02-24] MEDS: ALBUMIN HUMAN 50 ML IV SCH (19:47)
[2025-02-24] MEDS: 0.9 % SODIUM CHLORIDE 10 ML SYRINGE IV SCH (20:05)
[2025-02-24] MEDS: DOCUSATE SODIUM 100 MG CAPSULE PO SCH (20:05)
[2025-02-24 20:40] LABS: Anion Gap 16.0 (8.0-16.0); Blood Urea Nitrogen 124 mg/dL (6-20); Calcium 8.7 mg/dL (8.6-10.4); Carbon Dioxide 20 mmol/L (22-30); Chloride 91 mmol/L (96-108); Glucose 292 mg/dL (70-105); Potassium 4.6 mmol/L (3.3-5.1); Sodium 127 mmol/L (133-145)
[2025-02-24] MEDS: ALBUMIN HUMAN 37.5 GM/150 ML IV ONE (20:44)
[2025-02-24 21:39] LABS: Estimated Average Glucose(eAG) 203 mg/dL; Hemoglobin A1C 8.7 % Hgb (4.0-6.0)
[2025-02-24] MEDS ORDERED: DEXTROSE 50% 50 ML VIAL IV PRN ×2 (22:14→22:15)
[2025-02-24] MEDS: DEXTROSE 50% 50 ML VIAL IV PRN (22:30)
[2025-02-24] MEDS: DEXTROSE 50% 50 ML SYRINGE IV ONE (22:30)
[2025-02-25 02:41] LABS: Anion Gap 19.0 (8.0-16.0); Blood Urea Nitrogen 120 mg/dL (6-20); Calcium 8.6 mg/dL (8.6-10.4); Carbon Dioxide 17 mmol/L (22-30); Chloride 93 mmol/L (96-108); Glucose 168 mg/dL (70-105); Potassium 4.7 mmol/L (3.3-5.1); Sodium 129 mmol/L (133-145)
[2025-02-25] MEDS: INSULIN REGULAR, HUMAN 1 UNIT/0.01 ML UNIT ONE (02:55)
[2025-02-25 04:57] LABS: Retic Absolute 0.07 M/mcL (0.03-0.11)
[2025-02-25 05:03] LABS: Iron 13.0 ug/dL (61-157); TIBC Calculation 123.0 ug/dl (228-428); Transferrin % Saturation 11.0 % (20-50)
[2025-02-25 07:06] LABS: Phosphorous 4.6 mg/dL (2.5-4.5)
[2025-02-25 08:35] LABS: Anion Gap 19.0 (8.0-16.0); Blood Urea Nitrogen 115 mg/dL (6-20); Calcium 8.8 mg/dL (8.6-10.4); Carbon Dioxide 19 mmol/L (22-30); Chloride 94 mmol/L (96-108); Glucose 168 mg/dL (70-105); Potassium 4.7 mmol/L (3.3-5.1); Sodium 132 mmol/L (133-145)
[2025-02-25] MEDS: DEXTROSE 5%-1/2NS W/20MEQ KCL 1,000 ML IV SCH (11:02)
[2025-02-25] MEDS: HYDROcodone/APAP 10/325MG TABLET PO PRN (12:58)
[2025-02-25] MEDS: LIDOCAINE 2% URO-JET 10 ML JEL.PF.APP UR ONE (13:42)
[2025-02-25] MEDS: PIPERACILLIN SODIUM/TAZOBACTAM 4.5 GM in DEXTROSE 5% IN WATER 100 ML IV SCH (14:08)
[2025-02-25 14:55] LABS: Anion Gap 14.0 (8.0-16.0); Blood Urea Nitrogen 108 mg/dL (6-20); Calcium 8.5 mg/dL (8.6-10.4); Carbon Dioxide 22 mmol/L (22-30); Chloride 97 mmol/L (96-108); Glucose 145 mg/dL (70-105); Potassium 4.2 mmol/L (3.3-5.1); Sodium 133 mmol/L (133-145)
[2025-02-25] MEDS ORDERED: DEXTROSE 50% 50 ML VIAL IV PRN (15:09)
[2025-02-25] MEDS ORDERED: DEXTROSE 31 GM ORAL.SUSP PO PRN (15:09)
[2025-02-25] MEDS: INSULIN GLARGINE, HUMAN 1 UNIT/0.01 ML SQ SCH (15:46)
[2025-02-25] MEDS: INSULIN LISPRO 1 UNIT/0.01 ML UNIT SQ SCH (17:15)
[2025-02-25] MEDS: MEROPENEM 0.5 GM in 0.9 % SODIUM CHLORIDE 50 ML IV SCH (17:21)
[2025-02-25] MEDS: CARVEDILOL 3.125 MG TABLET PO SCH (20:45)
[2025-02-25] MEDS: PREGABALIN 25 MG CAPSULE PO SCH (20:45)
[2025-02-25] MEDS: TAMSULOSIN 0.4 MG CAPSULE PO SCH (20:45)
[2025-02-25] MEDS: BACLOFEN 10 MG TABLET PO SCH (20:46)
[2025-02-25] MEDS: OMEPRAZOLE 20 MG CAPSULE PO SCH (20:46)
[2025-02-25] MEDS: TRAVOPROST OPHTH DROPS BOTTLE 2.5ML OU SCH (20:49)
[2025-02-25 20:58] LABS: Bilirubin,Urine Negative (Negative); Color,Urine STRAW; Glucose,Urine (UA) 150 mg/dL (Negative); Ketones,Urine Negative (Negative); Leukocyte Esterase,Urine Negative /uL (Negative); Mucus,Urine FEW /hpf; PH,Urine 6.0 (5.0-9.0); Protein,Urine 100 mg/dL (Negative); Specific Gravity,Urine 1.012 (1.000-1.035); Urobilinogen,Urine Negative
[2025-02-25] MEDS ORDERED: ATORVASTATIN 40 MG TABLET PO SCH (21:00)
[2025-02-25] MEDS: 0.9 % SODIUM CHLORIDE 1,000 ML IV SCH (23:46)
[2025-02-26] MEDS: ONDANSETRON 4 MG/2 ML VIAL IV PRN (00:15)
[2025-02-26 06:13] LABS: Basophils # (Auto) 0.01 K/mcL (0.00-0.30); Basophils % (Auto) 0.1 % (0.0-2.0); Eosinophils # (Auto) 0.10 K/mcL (0.00-0.70); Eosinophils % (Auto) 1.5 % (0.0-7.0); Hematocrit 24.7 % (40.1-51.0); Hemoglobin 7.6 g/dL (13.7-17.5); Lymphocytes # (Auto) 0.54 K/mcL (1.50-4.80); Lymphocytes % (Auto) 7.9 % (15.5-49.0); Mean Corpuscular HGB Conc 30.8 g/dL (31.0-36.0); Monocytes # (Auto) 0.92 K/mcL (0.10-0.90); Monocytes % (Auto) 13.5 % (1.0-12.0); Neutrophils % (Auto) 76.6 % (38.0-78.0); Platelet Count 150 K/mcL (140-440); RBC 2.81 M/mcL (4.63-6.08); WBC 6.8 K/mcL (4.5-11.0)
[2025-02-26 06:28] LABS: Anion Gap 14.0 (8.0-16.0); Blood Urea Nitrogen 93 mg/dL (6-20); Calcium 8.3 mg/dL (8.6-10.4); Carbon Dioxide 22 mmol/L (22-30); Chloride 98 mmol/L (96-108); Glucose 238 mg/dL (70-105); Potassium 4.7 mmol/L (3.3-5.1); Sodium 134 mmol/L (133-145)
[2025-02-26 07:18] LABS: Phosphorous 5.4 mg/dL (2.5-4.5)
[2025-02-26] MEDS ORDERED: NON FORMULARY MEDICATION 1 DOSE MISCELL (Insulin Glargine [Lantus Solostar U-100 Insulin] SUB-Q SCH (09:00)
[2025-02-26] MEDS: INSULIN GLARGINE, HUMAN 1 UNIT/0.01 ML SQ SCH (09:13)
[2025-02-26] MEDS: ALLOPURINOL 100 MG TABLET PO SCH (09:14)
[2025-02-26] MEDS: BACLOFEN 10 MG TABLET PO SCH (09:14)
[2025-02-26] MEDS: CALCITRIOL 0.25 MCG CAPSULE PO SCH (09:14)
[2025-02-26] MEDS: buPROPion 150 MG TAB.SR.12H PO SCH (09:14)
[2025-02-26] MEDS: FOLIC ACID 1 MG TABLET PO SCH (09:14)
[2025-02-26] MEDS ORDERED: HEPARIN 10,000 UNIT/10 ML VIAL IV PRN (12:52)
[2025-02-26] MEDS: 0.9 % SODIUM CHLORIDE 250 ML IV SCH (13:00)
[2025-02-26] MEDS: INSULIN LISPRO 1 UNIT/0.01 ML UNIT SQ SCH ×2 (13:39→17:18)
[2025-02-27 06:30] LABS: Phosphorous 6.0 mg/dL (2.5-4.5)
[2025-02-27 06:30] LABS: Anion Gap 11.0 (8.0-16.0); Blood Urea Nitrogen 74 mg/dL (6-20); Calcium 8.4 mg/dL (8.6-10.4); Carbon Dioxide 25 mmol/L (22-30); Chloride 102 mmol/L (96-108); Glucose 182 mg/dL (70-105); Potassium 4.8 mmol/L (3.3-5.1); Sodium 138 mmol/L (133-145)
[2025-02-27 06:34] LABS: Basophils # (Auto) 0.02 K/mcL (0.00-0.30); Basophils % (Auto) 0.2 % (0.0-2.0); Eosinophils # (Auto) 0.28 K/mcL (0.00-0.70); Eosinophils % (Auto) 3.5 % (0.0-7.0); Hematocrit 32.4 % (40.1-51.0); Hemoglobin 10.2 g/dL (13.7-17.5); Lymphocytes # (Auto) 0.60 K/mcL (1.50-4.80); Lymphocytes % (Auto) 7.4 % (15.5-49.0); Mean Corpuscular HGB Conc 31.5 g/dL (31.0-36.0); Monocytes # (Auto) 0.93 K/mcL (0.10-0.90); Monocytes % (Auto) 11.5 % (1.0-12.0); Neutrophils % (Auto) 76.8 % (38.0-78.0); Platelet Count 135 K/mcL (140-440); RBC 3.72 M/mcL (4.63-6.08); WBC 8.1 K/mcL (4.5-11.0)
[2025-02-27] MEDS: hydrALAZINE 20 MG/ML VIAL IV PRN (10:25)
[2025-02-27] MEDS ORDERED: ALTEPLASE 2 MG VIAL IV PRN (12:37)
[2025-02-27] MEDS ORDERED: LIDOCAINE 2% PF 5 ML VIAL ONE (14:34)
[2025-02-27] MEDS ORDERED: ONDANSETRON 4 MG/2 ML VIAL ONE (14:34)
[2025-02-27] MEDS ORDERED: PHENYLephrine 1 MG/10 ML SYRINGE (ANEST) ONE (14:34)
[2025-02-27] MEDS ORDERED: TRANEXAMIC ACID 1,000 MG/10 ML VIAL ONE (14:34)
[2025-02-27] MEDS ORDERED: GLYCOPYRROLATE 0.2 MG/ML VIAL IV ONE (14:34)
[2025-02-27] MEDS ORDERED: DEXAMETHASONE 10 MG/ML VIAL ONE (14:34)
[2025-02-27] MEDS ORDERED: PROPOFOL 200 MG/20 ML VIAL IV ONE (14:37)
[2025-02-27] MEDS ORDERED: MIDAZOLAM 2 MG/2 ML VIAL ONE (14:37)
[2025-02-27] MEDS ORDERED: fentaNYL 100 MCG/2 ML VIAL IV PRN (17:01)
[2025-02-27] MEDS ORDERED: DROPERIDOL 5 MG/2 ML VIAL IV PRN (17:01)
[2025-02-27] MEDS ORDERED: IPRATROPIUM/ALBUTEROL 3 ML AMPUL.NEB NEB PRN (17:01)
[2025-02-27] MEDS ORDERED: ROPIVACAINE HCL/PF 30 ML VIAL IJ ONE (17:06)
[2025-02-27] MEDS: HYDROmorphone 0.5 MG/0.5 ML SYRINGE IV PRN (17:23)
[2025-02-27] MEDS: LACTATED RINGERS 1,000 ML IV SCH (18:16)
[2025-02-27] MEDS: HEPARIN 10 UNITS/ML 5ML FLUSH IV SCH ×2 (20:04)
[2025-02-27] MEDS: 0.9 % SODIUM CHLORIDE 10 ML SYRINGE IV SCH ×2 (20:05→21:18)
[2025-02-27] MEDS: TRANEXAMIC ACID 1,000 MG/10 ML VIAL IV ONE (20:32)
[2025-02-27] MEDS: TRANEXAMIC ACID 1,000 MG/10 ML VIAL ONE (21:17)
[2025-02-28 06:37] LABS: Basophils # (Auto) 0 K/mcL (0.00-0.30); Basophils % (Auto) 0 % (0.0-2.0); Eosinophils # (Auto) 0 K/mcL (0.00-0.70); Eosinophils % (Auto) 0 % (0.0-7.0); Hematocrit 31.8 % (40.1-51.0); Hemoglobin 9.8 g/dL (13.7-17.5); Lymphocytes # (Auto) 0.38 K/mcL (1.50-4.80); Lymphocytes % (Auto) 3.2 % (15.5-49.0); Mean Corpuscular HGB Conc 30.8 g/dL (31.0-36.0); Monocytes # (Auto) 0.31 K/mcL (0.10-0.90); Monocytes % (Auto) 2.6 % (1.0-12.0); Neutrophils % (Auto) 93.6 % (38.0-78.0); Platelet Count 144 K/mcL (140-440); RBC 3.62 M/mcL (4.63-6.08); WBC 12.0 K/mcL (4.5-11.0)
[2025-02-28 07:06] LABS: ALT/SGPT 24 U/L (<40); AST/SGOT 21 U/L (<40); Albumin 2.7 gm/dL (3.2-5.2); Albumin/Globulin Ratio 0.7 (1.0-2.3); Alkaline Phosphatase 77 U/L (39-117); Anion Gap 14.0 (8.0-16.0); Bilirubin,Direct < 0.2 mg/dL (0-0.3); Bilirubin,Total 0.2 mg/dL (0.1-1.0); Blood Urea Nitrogen 71 mg/dL (6-20); Calcium 8.1 mg/dL (8.6-10.4); Carbon Dioxide 21 mmol/L (22-30); Chloride 98 mmol/L (96-108); Globulin 3.8 gm/dL (2.2-3.7); Glucose 348 mg/dL (70-105); Phosphorous 6.4 mg/dL (2.5-4.5); Potassium 5.1 mmol/L (3.3-5.1); Sodium 133 mmol/L (133-145); Triglycerides 79 mg/dL (<150); Uric Acid 5.6 mg/dL (2.5-8.0)
[2025-02-28] MEDS: SODIUM ZIRCONIUM CYCLOSILICATE 10 GM PACKET PO SCH (08:08)
[2025-02-28] MEDS: MAGNESIUM SULFATE 1 GM/100 ML BAG IV ONE (09:09)
[2025-02-28] MEDS: 0.9 % SODIUM CHLORIDE 10 ML SYRINGE IV PRN (11:28)
[2025-03-01 06:48] LABS: Hematocrit 32.7 % (40.1-51.0); Hemoglobin 10.3 g/dL (13.7-17.5); Mean Corpuscular HGB Conc 31.5 g/dL (31.0-36.0); Platelet Count 172 K/mcL (140-440); RBC 3.73 M/mcL (4.63-6.08); WBC 12.2 K/mcL (4.5-11.0)
[2025-03-01 07:05] LABS: ALT/SGPT 15 U/L (<40); AST/SGOT 21 U/L (<40); Albumin 2.7 gm/dL (3.2-5.2); Albumin/Globulin Ratio 0.7 (1.0-2.3); Alkaline Phosphatase 81 U/L (39-117); Anion Gap 14.0 (8.0-16.0); Bilirubin,Direct < 0.2 mg/dL (0-0.3); Bilirubin,Total 0.2 mg/dL (0.1-1.0); Blood Urea Nitrogen 65 mg/dL (6-20); Calcium 8.1 mg/dL (8.6-10.4); Carbon Dioxide 22 mmol/L (22-30); Chloride 99 mmol/L (96-108); Globulin 3.7 gm/dL (2.2-3.7); Glucose 234 mg/dL (70-105); Phosphorous 5.9 mg/dL (2.5-4.5); Potassium 4.5 mmol/L (3.3-5.1); Sodium 135 mmol/L (133-145); Triglycerides 92 mg/dL (<150); Uric Acid 5.4 mg/dL (2.5-8.0)
[2025-03-01 08:11] LABS: Anisocytosis 1+ (None Seen); RBC Morphology ABNORMAL (Normal)
[2025-03-01] MEDS: CIPROFLOXACIN 500 MG TABLET PO SCH (08:23)
[2025-03-01] MEDS: INSULIN GLARGINE, HUMAN 1 UNIT/0.01 ML SQ SCH (08:31)
[2025-03-02 06:41] LABS: Basophils # (Auto) 0.03 K/mcL (0.00-0.30); Basophils % (Auto) 0.3 % (0.0-2.0); Eosinophils # (Auto) 0.25 K/mcL (0.00-0.70); Eosinophils % (Auto) 2.6 % (0.0-7.0); Hematocrit 34.6 % (40.1-51.0); Hemoglobin 10.6 g/dL (13.7-17.5); Lymphocytes # (Auto) 1.22 K/mcL (1.50-4.80); Lymphocytes % (Auto) 12.6 % (15.5-49.0); Mean Corpuscular HGB Conc 30.6 g/dL (31.0-36.0); Monocytes # (Auto) 0.91 K/mcL (0.10-0.90); Monocytes % (Auto) 9.4 % (1.0-12.0); Neutrophils % (Auto) 73.7 % (38.0-78.0); Platelet Count 185 K/mcL (140-440); RBC 3.91 M/mcL (4.63-6.08); WBC 9.7 K/mcL (4.5-11.0)
[2025-03-02] MEDS: INSULIN GLARGINE, HUMAN 1 UNIT/0.01 ML SQ SCH (08:37)
[2025-03-03] MEDS ORDERED: DARBEPOETIN ALFA 100 MCG/ML VIAL SQ SCH (09:00)
[2025-03-03 09:49] LABS: INR 1.2 (0.9-1.1); Partial Thromboplastin Time 45.1 sec (20.0-37.0); Prothrombin Time 15.8 sec (11.9-14.5)
[2025-03-03] MEDS ORDERED: FLUMAZENIL 0.1 MG/ML ML IV PRN (11:03)
[2025-03-03] MEDS ORDERED: NALOXONE HCL 0.4 MG/ML VIAL IV PRN (11:03)
[2025-03-03] MEDS: fentaNYL 100 MCG/2 ML VIAL IV ONE (12:35)
[2025-03-03] MEDS: MIDAZOLAM 2 MG/2 ML VIAL IV ONE (12:35)
[2025-03-03] MEDS ORDERED: LIDOCAINE W/EPI 1% 20 ML VIAL IJ ONE (13:37)
[2025-03-03] MEDS ORDERED: LIDOCAINE 1% 10 ML VIAL SQ ONE (13:37)
[2025-03-04] MEDS: BISACODYL 10 MG SUPP.RECT PR ONE ×2 (01:59→02:00)
[2025-03-04] MEDS: POLYETHYLENE GLYCOL 3350 17 GM PACKET ONE (08:39)
[2025-03-04] MEDS: TORSEMIDE 20 MG TABLET PO SCH (08:40)
[2025-03-04] MEDS: POLYETHYLENE GLYCOL 3350 17 GM PACKET PO ONE (10:17)
[2025-03-04 20:11] LABS: Albumin 2.7 gm/dL (3.2-5.2); Anion Gap 16.0 (8.0-16.0); Blood Urea Nitrogen 81 mg/dL (6-20); Calcium 8.7 mg/dL (8.6-10.4); Carbon Dioxide 21 mmol/L (22-30); Chloride 98 mmol/L (96-108); Glucose 165 mg/dL (70-105); Phosphorous 6.4 mg/dL (2.5-4.5); Potassium 4.6 mmol/L (3.3-5.1); Sodium 135 mmol/L (133-145)
[2025-03-05 09:58] LABS: Basophils # (Auto) 0.03 K/mcL (0.00-0.30); Basophils % (Auto) 0.2 % (0.0-2.0); Eosinophils # (Auto) 0.29 K/mcL (0.00-0.70); Eosinophils % (Auto) 2.2 % (0.0-7.0); Hematocrit 34.1 % (40.1-51.0); Hemoglobin 10.7 g/dL (13.7-17.5); Lymphocytes # (Auto) 1.36 K/mcL (1.50-4.80); Lymphocytes % (Auto) 10.3 % (15.5-49.0); Mean Corpuscular HGB Conc 31.4 g/dL (31.0-36.0); Monocytes # (Auto) 0.75 K/mcL (0.10-0.90); Monocytes % (Auto) 5.7 % (1.0-12.0); Neutrophils % (Auto) 80.3 % (38.0-78.0); Platelet Count 166 K/mcL (140-440); RBC 3.92 M/mcL (4.63-6.08); WBC 13.2 K/mcL (4.5-11.0)
[2025-03-05] MEDS: CALCIUM CARBONATE 500 MG TAB.CHEW CHEWED ONE (10:11)
[2025-03-05 10:25] LABS: Anion Gap 14.0 (8.0-16.0); Blood Urea Nitrogen 83 mg/dL (6-20); Calcium 8.6 mg/dL (8.6-10.4); Carbon Dioxide 23 mmol/L (22-30); Chloride 99 mmol/L (96-108); Glucose 184 mg/dL (70-105); Potassium 4.9 mmol/L (3.3-5.1); Sodium 136 mmol/L (133-145)
[2025-03-05 12:07] VITALS: TEMP 97.9; O2SAT 100
== END 2025-03-05 12:00 | DRG 239 ==
LOC: ED 13:04 → ICU 18:25 → MEDSUR 03-04 09:09
PROVIDERS: ADMIT Internal Medicine; ATTEND Student in an Organized Health Care Education/Training Program